=== PATIENT | female | born 1980 | race African-American/Black ===

== ENCOUNTER 2016-05-24 01:56 | Emergency (ER) | payer SELFPAY ==
[~2016-05-24] VITALS: Ht 160 cm; Wt 68.0 kg
[~2016-05-24 01:56] MED LIST: AUGM875T PO; SULF-154 PO; Z.0.NO CURRENT MEDS
[2016-05-24] MEDS ORDERED: AMOX500T PO (02:08)
[2016-05-24] MEDS ORDERED: HYDR-3533 PO (02:08)
[2016-05-24] MEDS ORDERED: ACETAMINOPHEN/HYDROcodone 325 MG/5 MG TAB PO ONE (02:15)
[2016-05-24] MEDS ORDERED: AMOXICILLIN (TRIHYDRATE) 500 MG CAP PO ONE (02:15)
--- NOTE | 2016-05-24 02:17 | PD ---
HPI Chief Complaint: ENT Complaint Time Seen by Provider: 02:15 Travel History International Travel<30 days: No Contact w/Intl Traveler<30days: No Traveled to known affect area: No History of Present Illness HPI 35-year-old black female presents to emergency Department with complaints of dental pain and ear pain. She states that she has been sick now for the last 2- 3 days. She states the pain is severe. She has taken [id number] medications without relief. No palliative activity. PFSH Past Medical History Narrative Medical Asthma Hx Anticoagulant Therapy: No Asthma: Yes ( CHILD) Cardiovascular Problems: No Chemotherapy: No Cerebrovascular Accident: No Diabetes: No Diminished Hearing: No Respiratory: Yes (ASTHMA) Tetanus Vaccination: < 5 Years : 0 Para: 0 Past Surgical History Surgical History: No Previous Surgery Hysterectomy: No Social History Alcohol Use: Yes Tobacco Use: Yes (1 PPD) Substance Use: No Allergies-Medications (Allergen,Severity, Reaction): Coded Allergies: No Known Allergies (Verified , 05/24/16) Reported Meds & Prescriptions Reported Meds & Active Scripts Active Amoxicillin 500 Mg Tab 1,000 Mg PO BID Lortab (Hydrocodone-Acetaminophen) 5-325 Mg Tab 1 Tab PO Q8HR PRN Septra Ds (Trimethoprim/Sulfamethoxazole) Tab 1 Tab PO BID [id number] M1 875 Mg Tab 1 Tab PO BID Reported No Current Meds (Miscellaneous Medication) Misc Review of Systems Except as stated in HPI: all other systems reviewed are Neg Physical Exam Narrative GENERAL: Well-developed, well-nourished in no acute distress. Nontoxic appearing. HEAD: Normocephalic, atraumatic. EYES: Pupils equal round and reactive. Extraocular motions intact. No scleral icterus. No injection or drainage. ENT: TMs clear without erythema. The external auditory canals clear. Nose: clear . Posterior pharynx is pink and moist. No tonsillar edema or exudate. Uvula midline. Airway patent. The patient has periodontal disease. She has multiple dental caries. NECK: Trachea midline.Supple, nontender, moves head freely. No central bony tenderness or spasm. CARDIOVASCULAR: Regular rate and rhythm without murmurs, gallops, or rubs. RESPIRATORY: Clear to auscultation. Breath sounds equal bilaterally. No wheezes , rales, or rhonchi. GASTROINTESTINAL: Abdomen soft, non-tender, nondistended. No hepato-splenomegaly , or palpable masses. No guarding. EXTREMITIES: No clubbing, cyanosis, or edema. No joint tenderness, effusion, or edema noted. BACK: Nontender without deformity or crepitance. No flank tenderness. Data Data Orders Amoxicillin (Trimox) (05/24/16 02:15) Acetamin-Hydrocod 325-5 Mg ([place] 5-325 (05/24/16 02:15) MDM Medical Decision Making Medical Screen Exam Complete: Yes Emergency Medical Condition: Yes Medical Record Reviewed: Yes Differential Diagnosis MDM: Moderate Differential diagnoses: Dental abscess, dental caries, osteitis, cellulitis Narrative Course Patient's given amoxicillin 500 mg by mouth, Lortab 5 mg by mouth. This is dental caries, dentalgia Diagnosis Primary Impression: Dentalgia Additional Impression: Dental caries Patient Instructions: General Instructions, Narcotic given in the ED Additional Instructions: Rest. Saltwater gargles. [place] oil on cotton balls. 3 Advil every 6 hours. Amoxicillin and Lortab. follow-up with a dentist as soon as possible. And return to the ER if any problems. Med/Other Pt SpecificInfo: Prescription(s) given Scripts Amoxicillin 500 Mg Tab1,000 Mg PO BID #40 TAB Prov:Leroy Olivas MD 05/24/16 Hydrocodone-Acetaminophen (Lortab)5-325 Mg Tab1 Tab PO Q8HR PRN (PAIN) #12 TAB Prov:Leroy Olivas MD 05/24/16 Disposition: 01 DISCHARGE HOME Condition: Stable Gary Ayoub May 24, 2016 02:17
== END 2016-05-24 02:27 | disposition home or self-care (01) ==
LOC: NEPB 01:56
DX: K02.9 Dental caries, unspecified (principal); K08.89 Other specified disorders of teeth and supporting structures
CPT/HCPCS: 99282

== ENCOUNTER 2016-08-11 06:05 | Emergency (ER) | payer SELFPAY ==
[~2016-08-11] VITALS: Ht 165.1 cm; Wt 68.0 kg
[~2016-08-11 06:05] MED LIST changes: +AMOX500T PO; +HYDR-3533 PO
[2016-08-11 06:07] VITALS: BP 106/69; PULSE 89; RESP 16; TEMP 99.1; O2SAT 98
[2016-08-11] MEDS ORDERED: VENTAER INH (06:22)
[2016-08-11] MEDS ORDERED: ONDANSETRON HCL 4 MG/2 ML VIAL IV PUSH ONE (06:30)
[2016-08-11] MEDS ORDERED: SODIUM CHLOR 0.9% 1000 ML INJ 1,000 ML IV ONE (06:30)
[2016-08-11] MEDS ORDERED: ZITHTAB PO (06:35)
[2016-08-11] MEDS ORDERED: ZOFR4TAB3 SL (06:35)
[2016-08-11] MEDS ORDERED: LOMO2.5T PO (06:35)
--- NOTE | 2016-08-11 06:35 | PD ---
HPI Chief Complaint: Cold / Flu Symptoms Time Seen by Provider: 06:17 Travel History International Travel<30 days: No Contact w/Intl Traveler<30days: No Traveled to known affect area: No History of Present Illness HPI 35 years old female complains of earache, sore throat, productive cough, nausea vomiting diarrhea. Patient states that the symptoms started 2 days ago. Patient states that the cough is persistent and nonproductive. Patient states that she has blood-tinged sputum occasionally. Patient states that she has some blood-tinged stool also. Patient denies any fever chills. Patient denies any chest pain or shortness of breath. Patient also complains of body ache. PFSH Past Medical History Hx Anticoagulant Therapy: No Asthma: Yes ( CHILD) Cardiovascular Problems: No Chemotherapy: No Cerebrovascular Accident: No Diabetes: No Diminished Hearing: No Respiratory: Yes (ASTHMA) : 0 Para: 0 Past Surgical History Hysterectomy: No Social History Alcohol Use: Yes Tobacco Use: Yes (1 PPD) Substance Use: No Allergies-Medications (Allergen,Severity, Reaction): Coded Allergies: No Known Allergies (Verified , 08/11/16) Reported Meds & Prescriptions Reported Meds & Active Scripts Active Zithromax Z-Guzman (Azithromycin) 250 Mg Dspk 250 Mg PO DIRECTED 500 MG (2 tabs) day 1, then 1 tab days 2-5. Lomotil (Diphenoxylate-Atropine) 2.5-0.025 Mg Tab 1 Tab PO Q6H PRN Zofran Odt (Ondansetron Odt) 4 Mg Tab 4 Mg SL Q6HR PRN Reported Ventolin Hfa 18 GM Inh (Albuterol Sulfate) 90 Mcg/Act Aer 2 Puff INH Q4-6H PRN Review of Systems General / Constitutional: No: Fever Eyes: No: Visual changes HENT: Positive: Sore Throat, Earache, No: Headaches Cardiovascular: No: Chest Pain or Discomfort Respiratory: Positive: Cough, Hemoptysis, No: Shortness of Breath Gastrointestinal: Positive: Nausea, Vomiting, Diarrhea, No: Abdominal Pain Genitourinary: No: Dysuria Musculoskeletal: No: Pain Skin: No Rash Neurologic: No: Weakness Psychiatric: No: Depression Endocrine: No: Polydipsia Hematologic/Lymphatic: No: Easy Bruising Physical Exam Narrative GENERAL: Well-nourished, well-developed patient. SKIN: Focused skin assessment warm/dry. HEAD: Normocephalic. EYES: No scleral icterus. No injection or drainage. TM: Clear. Throat: Erythematous with exudate. NECK: Supple, trachea midline. No JVD or lymphadenopathy. CARDIOVASCULAR: Regular rate and rhythm without murmurs, gallops, or rubs. RESPIRATORY: Breath sounds equal bilaterally. No accessory muscle use. GASTROINTESTINAL: Abdomen soft, non-tender, nondistended. MUSCULOSKELETAL: No cyanosis, or edema. BACK: Nontender without obvious deformity. No CVA tenderness. Neurologic exam normal. Data Data Last Documented VS Vital Signs Date Time Temp Pulse Resp B/P Pulse Ox O2 Delivery O2 Flow Rate FiO2 08/11/16 06:07 99.1 89 16 106/69 98 Orders Complete Blood Count With Diff (08/11/16 06:21) Comprehensive Metabolic Panel (08/11/16 06:21) Urinalysis - C+S If Indicated (08/11/16 06:21) Iv Access Insert/Monitor (08/11/16 06:21) Ecg Monitoring (08/11/16 06:21) Oximetry (08/11/16 06:21) Ed Urine Pregnancytest Poc (08/11/16 06:21) Sodium Chlor 0.9% 1000 Ml Inj (Ns 1000 M (08/11/16 06:30) Ondansetron Inj (Zofran Inj) (08/11/16 06:30) Chest, Single Ap (08/11/16 06:23) Group A Rapid Strep Screen (08/11/16 06:26) Influenzae A/B Antigen (08/11/16 06:26) Strep Culture (Group A) (08/11/16 06:30) Labs Laboratory Tests Test 08/11/16 08/11/16 06:25 06:30 White Blood Count 7.8 TH/MM3 Red Blood Count 4.46 MIL/MM3 Hemoglobin 13.0 GM/DL Hematocrit 37.3 % Mean Corpuscular Volume 83.6 FL Mean Corpuscular Hemoglobin 29.1 PG Mean Corpuscular Hemoglobin 34.8 % Concent Red Cell Distribution Width 15.1 % Platelet Count 269 TH/MM3 Mean Platelet Volume 8.2 FL Neutrophils (%) (Auto) 65.3 % Lymphocytes (%) (Auto) 18.3 % Monocytes (%) (Auto) 13.7 % Eosinophils (%) (Auto) 1.2 % Basophils (%) (Auto) 1.5 % Neutrophils # (Auto) 5.1 TH/MM3 Lymphocytes # (Auto) 1.4 TH/MM3 Monocytes # (Auto) 1.1 TH/MM3 Eosinophils # (Auto) 0.1 TH/MM3 Basophils # (Auto) 0.1 TH/MM3 CBC Comment DIFF FINAL Differential Comment Sodium Level 138 MEQ/L Potassium Level 3.9 MEQ/L Chloride Level 104 MEQ/L Carbon Dioxide Level 26.1 MEQ/L Anion Gap 8 MEQ/L Blood Urea Nitrogen 6 MG/DL Creatinine 0.81 MG/DL Estimat Glomerular Filtration 97 ML/MIN Rate Random Glucose 89 MG/DL Calcium Level 8.7 MG/DL Total Bilirubin 0.3 MG/DL Aspartate Amino Transf 10 U/L (AST/SGOT) Alanine Aminotransferase 20 U/L (ALT/SGPT) Alkaline Phosphatase 44 U/L Total Protein 7.9 GM/DL Albumin 3.4 GM/DL Urine Color YELLOW Urine Turbidity HAZY Urine pH 7.0 Urine Specific [place] 1.017 Urine Protein TRACE mg/dL Urine Glucose (UA) NEG mg/dL Urine Ketones NEG mg/dL Urine Occult Blood SMALL Urine Nitrite NEG Urine Bilirubin NEG Urine Urobilinogen 2.0 MG/DL Urine Leukocyte Esterase SMALL Urine RBC 3 /hpf Urine WBC 2 /hpf Urine Squamous Epithelial 15 /hpf Cells Urine Bacteria RARE /hpf Urine Mucus FEW /lpf Microscopic Urinalysis Comment CULT NOT INDICATED MDM Medical Decision Making Medical Screen Exam Complete: Yes Emergency Medical Condition: Yes Interpretation(s) 7:16 AM. Influenza AB antigen negative. Strep screen negative. CBC CMP within normal limit. UA is negative. Differential Diagnosis Differential diagnosis including viral syndrome, otitis media, bronchitis, bronchitis, pneumonia, gastroenteritis, dehydration, electrolyte imbalance. Narrative Course 35 years old female complains of earache sore throat coughing nausea vomiting diarrhea body ache. Normal saline solution 1 L IV bolus. Zofran 4 mg IV. Diagnosis Primary Impression: Pharyngitis Qualified Code: J02.9 - Pharyngitis, unspecified etiology Additional Impressions: Bronchitis Gastroenteritis Patient Instructions: General Instructions Additional Instructions: Take medications as directed. Tylenol for fever. Follow-up with personal physician. Return if persistent problem or worse. Med/Other Pt SpecificInfo: Prescription(s) given Scripts Azithromycin (Zithromax Z-Guzman)250 Mg [id number] Mg PO DIRECTED #1 DSPK Ref 0 500 MG (2 tabs) day 1, then 1 tab days 2-5. Prov:Juan Miguel Rodriguez MD 08/11/16 Diphenoxylate-Atropine (Lomotil)2.5-0.025 Mg Tab1 Tab PO Q6H PRN (DIARRHEA) #10 TAB Ref 0 Prov:Juan Miguel oRdriguez MD 08/11/16 Ondansetron Odt (Zofran Odt)4 Mg Tab4 Mg SL Q6HR PRN (Nausea/Vomiting) #10 TAB Prov:Juan Miguel Rodriguez MD 08/11/16 Disposition: 01 DISCHARGE HOME Condition: Stable Juan Miguel Rodriguez MD Aug 11, 2016 06:35
--- NOTE | 2016-08-11 06:48 | RADRPT ---
EXAM DATE/TIME: 08/11/2016 06:21 [facility] COMPARISON: No previous studies available for comparison. INDICATIONS : Cough up blood. MEDICAL HISTORY : None. SURGICAL HISTORY : None. ENCOUNTER: Initial ACUITY: 1 day PAIN SCORE: 0/10 LOCATION: Bilateral chest FINDINGS: A single view of the chest demonstrates the lungs to be symmetrically aerated without evidence of mas s, infiltrate or effusion. The cardiomediastinal contours are unremarkable. Osseous structures are intact. CONCLUSION: Normal examination. Aaron Arreola MD on August 11, 2016 at 6:47 Board Certified Radiologist. This report was verified electronically.
[2016-08-11 06:50] LABS: AUTOMATED NEUTROPHIL # 5.1 TH/MM3 (1.8-7.7); BASOPHIL # 0.1 TH/MM3 (0-0.2); BASOPHIL % 1.5 % (0.0-2.0); EOSINOPHIL # 0.1 TH/MM3 (0-0.4); EOSINOPHIL % 1.2 % (0.0-4.0); HEMATOCRIT 37.3 % (35.0-46.0); HEMO FLAGS DIFF FINAL; LYMPH % 18.3 % (9.0-44.0); LYMPHOCYTE # 1.4 TH/MM3 (1.0-4.8); MEAN CELL VOLUME 83.6 FL (80.0-100.0); MEAN CORPUSCULAR HEMOGLOBIN 29.1 PG (27.0-34.0); MEAN CORPUSCULAR HGB CONC 34.8 % (32.0-36.0); MONO % 13.7 % (0.0-8.0); NEUT % 65.3 % (16.0-70.0); PLATELET COUNT 269 TH/MM3 (150-450); RED BLOOD COUNT 4.46 MIL/MM3 (4.00-5.30); RED CELL DISTRIBUTION WIDTH 15.1 % (11.6-17.2); WHITE BLOOD COUNT 7.8 TH/MM3 (4.0-11.0)
[2016-08-11 06:57] LABS: BACTERIA, URINE RARE /hpf; BLOOD, URINE SMALL (NEG); COMMENT (UR) CULT NOT INDICATED; CULTURE IF INDICATED CULT NOT INDICATED; GLUCOSE,URINE NEG (NEG); KETONE, URINE NEG (NEG); MUCUS URINE FEW /lpf (OCC); NITRITE,URINE NEG (NEG); SQUAMOUS EPITHELIAL CELL URINE 15 /hpf (0-5); URINE COLOR YELLOW (YELLW/STRAW)
[2016-08-11 07:08] LABS: ANION GAP 8 MEQ/L (5-15); AST (GOT) 10 U/L (15-37); BICARBONATE 26.1 MEQ/L (21.0-32.0); BLOOD UREA NITROGEN 6 MG/DL (7-18); CHLORIDE 104 MEQ/L (98-107); GLOMERULAR FILTRATION RATE 97 ML/MIN (>89); POTASSIUM 3.9 MEQ/L (3.5-5.1); SODIUM (NA) 138 MEQ/L (136-145)
[2016-08-11 07:11] LABS: ALKALINE PHOSPHATASE 44 U/L (45-117); ALT (GPT) 20 U/L (10-53); TOTAL BILIRUBIN ADULT 0.3 MG/DL (0.2-1.0)
[2016-08-11 07:24] VITALS: BP 120/78; TEMP 97.8
== END 2016-08-11 07:24 | disposition home or self-care (01) ==
LOC: NEPE 06:05
DX: J02.9 Acute pharyngitis, unspecified (principal); J20.9 Acute bronchitis, unspecified; K52.9 Noninfective gastroenteritis and colitis, unspecified; F17.200 Nicotine dependence, unspecified, uncomplicated
CPT/HCPCS: 71010; 80053; 81001; 84703; 85025; 87081; 87804; 87880; 96361; 96374; 99284; J2405; J7030

== ENCOUNTER 2016-10-12 13:42 | Emergency (ER) | payer SELFPAY ==
[~2016-10-12] VITALS: Ht 160 cm; Wt 70.0 kg
[~2016-10-12 13:42] MED LIST changes: -AMOX500T PO; -AUGM875T PO; -HYDR-3533 PO; +LOMO2.5T PO; -SULF-154 PO; +VENTAER INH; -Z.0.NO CURRENT MEDS; +ZITHTAB PO; +ZOFR4TAB3 SL
[2016-10-12 13:43] VITALS: BP 132/76; PULSE 74; RESP 14; TEMP 99.4; O2SAT 97
[2016-10-12] MEDS ORDERED: SODIUM CHLOR 0.9% 1000 ML INJ 1,000 ML IV ONE (15:45)
[2016-10-12] MEDS ORDERED: diphenhydrAMINE HCL 50 MG/ML VIAL IV PUSH ONE (15:45)
[2016-10-12] MEDS ORDERED: PROCHLORPERAZINE INJ 10 MG/2 ML VIAL IV PUSH ONE (15:45)
--- NOTE | 2016-10-12 15:47 | PD ---
HPI Chief Complaint: Headache Time Seen by Provider: 15:37 Travel History International Travel<30 days: No Contact w/Intl Traveler<30days: No Traveled to known affect area: No History of Present Illness HPI This is a 35-year-old female who presents to the emergency department having woken up from sleep last evening with a headache that came on abruptly, going to the back of her head radiating down her back and her neck, constant, associated with some nausea and photophobia. She says she has felt feverish. She denies any sore throat, rhinorrhea or cough. She is not really prone to headaches and she's never had headache like this before. PFSH Past Medical History Hx Anticoagulant Therapy: No Asthma: Yes Cardiovascular Problems: No Chemotherapy: No Cerebrovascular Accident: No Diabetes: No Diminished Hearing: No Respiratory: Yes (asthma) Tetanus Vaccination: < 5 Years Influenza Vaccination: No ?: Unknown : 0 Para: 0 Past Surgical History Hysterectomy: No Social History Alcohol Use: No Tobacco Use: Yes Substance Use: No Allergies-Medications (Allergen,Severity, Reaction): Coded Allergies: No Known Allergies (Verified , 08/11/16) Reported Meds & Prescriptions Reported Meds & Active Scripts Active Zithromax Z-Guzman (Azithromycin) 250 Mg Dspk 250 Mg PO DIRECTED 500 MG (2 tabs) day 1, then 1 tab days 2-5. Lomotil (Diphenoxylate-Atropine) 2.5-0.025 Mg Tab 1 Tab PO Q6H PRN Zofran Odt (Ondansetron Odt) 4 Mg Tab 4 Mg SL Q6HR PRN Reported Ventolin Hfa 18 GM Inh (Albuterol Sulfate) 90 Mcg/Act Aer 2 Puff INH Q4-6H PRN Review of Systems Except as stated in HPI: all other systems reviewed are Neg Physical Exam Narrative GENERAL:Well appearing, no acute distress SKIN: Focused skin assessment warm and dry. HEAD: Atraumatic. Normocephalic. EYES: Pupils equal and round. No injection or drainage. ENT: Moist mucous membranes. Exudate on the right tonsil with some posterior pharyngeal erythema NECK: Trachea midline. Some tender anterior cervical lymphadenopathy on the right. CARDIOVASCULAR: Regular rate and rhythm. No murmur appreciated. RESPIRATORY: Clear to auscultation. Breath sounds equal bilaterally. GASTROINTESTINAL: Abdomen soft, non-tender, nondistended. MUSCULOSKELETAL: No obvious deformities. NEUROLOGICAL: Awake and alert. No obvious cranial nerve deficits. Moving all extremities. He PSYCHIATRIC: Appropriate mood and affect; insight and judgment normal. Data Data Last Documented VS Vital Signs Date Time Temp Pulse Resp B/P Pulse Ox O2 Delivery O2 Flow Rate FiO2 10/12/16 15:20 99 Room Air 10/12/16 13:43 99.4 74 14 132/[address] Brain W/O Iv Contrast(Rout) (10/12/16 ) Complete Blood Count With Diff (10/12/16 15:44) Comprehensive Metabolic Panel (10/12/16 15:44) Prothrombin Time / Inr (Pt) (10/12/16 15:44) Act Partial Throm Time (Ptt) (10/12/16 15:44) ^ Insert Iv (10/12/16 15:44) Group A Rapid Strep Screen (10/12/16 15:44) Prochlorperazine Inj (Compazine Inj) (10/12/16 15:45) Diphenhydramine Inj (Benadryl Inj) (10/12/16 15:45) Sodium Chlor 0.9% 1000 Ml Inj (Ns 1000 M (10/12/16 15:45) Strep Culture (Group A) (10/12/16 16:00) Monoscreen (10/12/16 16:29) Labs Laboratory Tests Test 10/12/16 16:00 White Blood Count 6.8 TH/MM3 Red Blood Count 4.37 MIL/MM3 Hemoglobin 12.6 GM/DL Hematocrit 36.7 % Mean Corpuscular Volume 83.9 FL Mean Corpuscular Hemoglobin 28.8 PG Mean Corpuscular Hemoglobin 34.3 % Concent Red Cell Distribution Width 15.2 % Platelet Count 286 TH/MM3 Mean Platelet Volume 7.9 FL Neutrophils (%) (Auto) 57.8 % Lymphocytes (%) (Auto) 22.2 % Monocytes (%) (Auto) 18.9 % Eosinophils (%) (Auto) 0.6 % Basophils (%) (Auto) 0.5 % Neutrophils # (Auto) 3.9 TH/MM3 Lymphocytes # (Auto) 1.5 TH/MM3 Monocytes # (Auto) 1.3 TH/MM3 Eosinophils # (Auto) 0.0 TH/MM3 Basophils # (Auto) 0.0 TH/MM3 CBC Comment DIFF FINAL Differential Comment Prothrombin Time 11.3 SEC Prothromb Time International 1.0 RATIO Ratio Activated Partial 25.9 SEC Thromboplast Time Sodium Level 139 MEQ/L Potassium Level 3.6 MEQ/L Chloride Level 107 MEQ/L Carbon Dioxide Level 23.5 MEQ/L Anion Gap 9 MEQ/L Blood Urea Nitrogen 10 MG/DL Creatinine 0.64 MG/DL Estimat Glomerular Filtration 127 ML/MIN Rate Random Glucose 84 MG/DL Calcium Level 9.0 MG/DL Total Bilirubin 0.7 MG/DL Aspartate Amino Transf 12 U/L (AST/SGOT) Alanine Aminotransferase 21 U/L (ALT/SGPT) Alkaline Phosphatase 38 U/L Total Protein 7.6 GM/DL Albumin 3.6 GM/DL [facility] Medical Decision Making Medical Screen Exam Complete: Yes Emergency Medical Condition: Yes Interpretation(s) temperature 99.4, no tachycardic, normotensive no leukocytosis 18% monocytes electrolytes within normal limits Differential Diagnosis Migraine headache, sinusitis, viral meningitis, HSV encephalitis, subarachnoid hemorrhage Narrative Course This is a 35-year-old female who presents to the emergency department with headache that started last evening associated with some fevers and chills. She has a temperature of 99.4 here in the emergency department. She does have some pus on the right tonsil and some tender lymphadenopathy in her neck. Labs were obtained which demonstrate 18% monocytes. CT of the head was obtained which is pending. She feels a lot better after Compazine, Benadryl and IV fluids. I had a long conversation with the patient. In my heart I think this is likely a viral syndrome given the patient's monocytic predominance however I don't think I can definitively exclude a viral meningitis, ages see encephalitis or subarachnoid hemorrhage without a lumbar puncture. Patient understands the risks but really doesn't want to have a lumbar puncture and she feels much better after conservative treatment. She wants to come back if she feels worse which I think is reasonable. CT imaging will be followed up by Dr. Reno. If the patient feels better after some Toradol she can be discharged home. Rafaela Mason MD Oct 12, 2016 15:47
[2016-10-12 16:11] LABS: AUTOMATED NEUTROPHIL # 3.9 TH/MM3 (1.8-7.7); BASOPHIL % 0.5 % (0.0-2.0); EOSINOPHIL % 0.6 % (0.0-4.0); HEMATOCRIT 36.7 % (35.0-46.0); HEMO FLAGS DIFF FINAL; LYMPH % 22.2 % (9.0-44.0); LYMPHOCYTE # 1.5 TH/MM3 (1.0-4.8); MEAN CELL VOLUME 83.9 FL (80.0-100.0); MEAN CORPUSCULAR HEMOGLOBIN 28.8 PG (27.0-34.0); MEAN CORPUSCULAR HGB CONC 34.3 % (32.0-36.0); MONO % 18.9 % (0.0-8.0); NEUT % 57.8 % (16.0-70.0); PLATELET COUNT 286 TH/MM3 (150-450); RED BLOOD COUNT 4.37 MIL/MM3 (4.00-5.30); RED CELL DISTRIBUTION WIDTH 15.2 % (11.6-17.2); WHITE BLOOD COUNT 6.8 TH/MM3 (4.0-11.0)
[2016-10-12 16:19] LABS: APTT (PATIENT) 25.9 SEC (24.3-30.1); PROTHROMBIN TIME - PATIENT 11.3 SEC (9.8-11.6)
[2016-10-12 16:34] LABS: ALT (GPT) 21 U/L (10-53); ANION GAP 9 MEQ/L (5-15); AST (GOT) 12 U/L (15-37); BICARBONATE 23.5 MEQ/L (21.0-32.0); BLOOD UREA NITROGEN 10 MG/DL (7-18); CHLORIDE 107 MEQ/L (98-107); GLOMERULAR FILTRATION RATE 127 ML/MIN (>89); POTASSIUM 3.6 MEQ/L (3.5-5.1); SODIUM (NA) 139 MEQ/L (136-145)
[2016-10-12 16:37] LABS: ALKALINE PHOSPHATASE 38 U/L (45-117); TOTAL BILIRUBIN ADULT 0.7 MG/DL (0.2-1.0)
--- NOTE | 2016-10-12 17:21 | RADRPT ---
EXAM DATE/TIME: 10/12/2016 17:03 [facility] COMPARISON: No previous studies available for comparison. INDICATIONS : Cephalgia for one day. RADIATION DOSE: 50.14 CTDIvol (mGy) MEDICAL HISTORY : None SURGICAL HISTORY : None. ENCOUNTER: Initial ACUITY: 1 day PAIN SCALE: 8/10 LOCATION: Bilateral head TECHNIQUE: Multiple contiguous axial images were obtained of the head. Using automated exposure control and adj ustment of the mA and/or kV according to patient size, radiation dose was kept as low as reasonably a chievable to obtain optimal diagnostic quality images. FINDINGS: CEREBRUM: The ventricles are normal for age. No evidence of midline shift, mass lesion, hemorrhage or acute in farction. No extra-axial fluid collections are seen. POSTERIOR FOSSA: The cerebellum and brainstem are intact. The 4th ventricle is midline. The cerebellopontine angle i s unremarkable. EXTRACRANIAL: The visualized portion of the orbits is intact. SKULL: The calvaria is intact. No evidence of skull fracture. CONCLUSION: 1. No acute intracranial abnormality is identified. Leroy Melo MD on October 12, 2016 at 17:17 Board Certified Radiologist. This report was verified electronically.
[2016-10-12] MEDS ORDERED: KETOROLAC TROMETHAMINE 30 MG/ML (IVP) VIAL IV PUSH ONE (18:00)
--- NOTE | 2016-10-12 18:38 | PD ---
Physical Exam Narrative Patient signed out to me by Dr. Mason to follow up testing and reassess the patient. Please see her documentation for complete details. Briefly, patient has had a headache and body aches. She was given Compazine and Benadryl by Dr. Mason with improvement of her headache. Exam shows no neurologic abnormalities. Data Data Last Documented VS Vital Signs Date Time Temp Pulse Resp B/P Pulse Ox O2 Delivery O2 Flow Rate FiO2 10/12/16 15:20 99 Room Air 10/12/16 13:43 99.4 74 14 132/[address] Brain W/O Iv Contrast(Rout) (10/12/16 ) Complete Blood Count With Diff (10/12/16 15:44) Comprehensive Metabolic Panel (10/12/16 15:44) Prothrombin Time / Inr (Pt) (10/12/16 15:44) Act Partial Throm Time (Ptt) (10/12/16 15:44) ^ Insert Iv (10/12/16 15:44) Group A Rapid Strep Screen (10/12/16 15:44) Prochlorperazine Inj (Compazine Inj) (10/12/16 15:45) Diphenhydramine Inj (Benadryl Inj) (10/12/16 15:45) Sodium Chlor 0.9% 1000 Ml Inj (Ns 1000 M (10/12/16 15:45) Strep Culture (Group A) (10/12/16 16:00) Monoscreen (10/12/16 16:29) Ed Urine Pregnancytest Poc (10/12/16 17:26) Ketorolac Inj (Toradol Inj) (10/12/16 18:00) Labs Laboratory Tests Test 10/12/16 10/12/16 16:00 16:35 White Blood Count 6.8 TH/MM3 Red Blood Count 4.37 MIL/MM3 Hemoglobin 12.6 GM/DL Hematocrit 36.7 % Mean Corpuscular Volume 83.9 FL Mean Corpuscular Hemoglobin 28.8 PG Mean Corpuscular Hemoglobin 34.3 % Concent Red Cell Distribution Width 15.2 % Platelet Count 286 TH/MM3 Mean Platelet Volume 7.9 FL Neutrophils (%) (Auto) 57.8 % Lymphocytes (%) (Auto) 22.2 % Monocytes (%) (Auto) 18.9 % Eosinophils (%) (Auto) 0.6 % Basophils (%) (Auto) 0.5 % Neutrophils # (Auto) 3.9 TH/MM3 Lymphocytes # (Auto) 1.5 TH/MM3 Monocytes # (Auto) 1.3 TH/MM3 Eosinophils # (Auto) 0.0 TH/MM3 Basophils # (Auto) 0.0 TH/MM3 CBC Comment DIFF FINAL Differential Comment Prothrombin Time 11.3 SEC Prothromb Time International 1.0 RATIO Ratio Activated Partial 25.9 SEC Thromboplast Time Sodium Level 139 MEQ/L Potassium Level 3.6 MEQ/L Chloride Level 107 MEQ/L Carbon Dioxide Level 23.5 MEQ/L Anion Gap 9 MEQ/L Blood Urea Nitrogen 10 MG/DL Creatinine 0.64 MG/DL Estimat Glomerular Filtration 127 ML/MIN Rate Random Glucose 84 MG/DL Calcium Level 9.0 MG/DL Total Bilirubin 0.7 MG/DL Aspartate Amino Transf 12 U/L (AST/SGOT) Alanine Aminotransferase 21 U/L (ALT/SGPT) Alkaline Phosphatase 38 U/L Total Protein 7.6 GM/DL Albumin 3.6 GM/DL Monoscreen NEG MDM Supervised Visit with DIMA: No Narrative Course Patient given Toradol for muscle pain. She reports feeling better and would like to go home. Dr. Mason discussed with her the possibility of LP. However, she does not want this procedure at this time. I discussed it with her at all, and she still declines. She understands this is the only way to completely rule out meningitis or encephalitis. she says she is feeling better, but will return if her symptoms worsen. She is advised to drink plenty of fluids and take Tylenol or Ibuprofen as needed for pain. Diagnosis Primary Impression: Headache Qualified Code: R51 - Acute nonintractable headache, unspecified headache type Patient Instructions: Acute Headache (ED), General Instructions Additional Instruction: Drink plenty of fluids. Take Tylenol or Ibuprofen as needed for pain. Follow up with a primary care doctor. Return to the ED as needed for any worsening symptoms. Disposition: 01 DISCHARGE HOME Condition: Stable Kkee Reno MD Oct 12, 2016 18:38
[2016-10-12 18:48] VITALS: BP 128/71
== END 2016-10-12 18:56 | disposition home or self-care (01) ==
LOC: NEPD 13:42
DX: R51 Headache (principal); M79.1 Myalgia
CPT/HCPCS: 70450; 80053; 84703; 85025; 85610; 85730; 86308; 87081; 87880; 96361; 96374; 96375; 99285; J0780; J1200; J1885; J7030

== ENCOUNTER 2018-04-30 08:04 | Inpatient (IN) ==
[2018-04-30] MEDS ORDERED: Sod Chloride 0.9% Inj 1,000 ML IV.SIG ONE ×2 (09:14→11:32)
[2018-04-30] MEDS ORDERED: Morphine Inj 4 MG/ML Vial IV.PUSH ONE (09:14)
--- NOTE | 2018-04-30 09:27 | ED ---
HPI General Chief complaint: Abdominal Pain Stated complaint: Body Pain Complaint Time Seen by Provider: 04/30/18 09:08 Source: patient and RN notes reviewed Mode of arrival: ambulatory History of Present Illness HPI narrative: 37yF presenting with abdominal pain. The patient states that she' s had 4 days of epigastric and lower abdominal "stabbing" pain which is constant , non-radiating, worse with movement and not made better by anything, severe, associated with nausea and multiple episodes of vomiting. She also states that she has not had a BM for 5 days. Denies fevers or chills, chest pain, cough, dysuria, or diarrhea. Family history non-contributory. Related Data Home Medications Medication Instructions Recorded Confirmed albuterol sulfate [ProAir HFA] 1 puff INHALATION Q4-6H PRN 03/07/18 04/30/18 Allergies Allergy/AdvReac Type Severity Reaction Status Date / Time No Known Allergies Allergy Verified 04/30/18 09:09 Review of Systems ROS: all other systems reviewed are negative Constitutional Denies fever(s) Cardiovascular Denies chest pain Respiratory Denies cough Gastrointestinal Reports abdominal pain, Reports nausea and Reports vomiting Genitourinary Denies dysuria Musculoskeletal Denies back pain Neurologic Denies confusion Psychiatric Denies confusion [facility] Medical History Medical History Asthma (Acute) Surgical History Surgical History No history of previous surgery (Acute) Social History Social History Substance History: No History of Abuse Second Hand Smoke Exposure: Yes Smoking Status: Current every day smoker Tobacco Type: Cigarettes How Often Do You Have a Drink Containing Alcohol: Never Recent Out of Country Travel within the Last 8 Weeks: No Immunization History Tetanus Immunization: <5 Years Exam Const General: healthy appearing and no acute distress HENMT Face and sinus: normal facial exam Eyes General: appearance normal, both eyes and all related structures Resp Effort & Inspection: normal respiratory effort Auscultation: no rhonchi and no wheezes Cardio Rate: regular rate Rhythm: regular rhythm GI Other: Soft, non-distended, moderate diffuse tenderness worst in RLQ/ McBurney' s point, no guarding or rebound Skin General: no rashes or lesions noted Neuro General: alert and awake Psych Affect: normal affect Course Initial Documented Vital Signs Temperature 98.3 F 04/30/18 08:17 Pulse Rate 101 H 04/30/18 08:17 Respiratory Rate 19 04/30/18 08:17 Blood Pressure 118/57 L 04/30/18 08:17 Pulse Oximetry 98 04/30/18 08:17 Last Documented Vital Signs Temperature 98.3 F 04/30/18 08:17 Pulse Rate 101 H 04/30/18 08:17 Respiratory Rate 18 04/30/18 13:00 Blood Pressure 118/57 L 04/30/18 08:17 Pulse Oximetry 98 04/30/18 08:17 Medical Decision Making MDM Narrative Medical decision making narrative: Assessment: 37yF presenting with abdominal pain Plan: Pain control, antiemetics, IV fluids Labs UA, UCG CT abd/ pelvis Addendum: Patient found to have leukocytosis, UTI, and acute appendicitis with possible rupture. The patient has been NPO since last night. Case discussed with Dr. Thomas of general surgery, who will come see the patient and requests medical admission. I also spoke with Dr. De León of [facility]. I informed the patient of these results and plan for likely surgical intervention. She understands and agrees with plan. Antibiotics given. Medical Screen Exam Complete: Yes Emergency Medical Condition: Yes Differential Diagnosis Differential Diagnosis: Differential diagnosis includes, but is not limited to: appendicitis, SBO, colitis, pancreatitis, gastritis, cholelithiasis, UTI/ pyelonephritis, Lab Data Result diagrams: 04/30/18 09:30 04/30/18 09:30 POC Results POC Urine Results Negative Lab Results 04/30/18 04/30/18 04/30/18 Range/Units 09:30 09:30 09:30 WBC 11.8 H (4.0-11.0) th/mm3 RBC 4.38 (4.00-5.30) mil/mm3 Hgb 12.2 (11.6-15.3) gm/dL Hct 36.2 (35.0-46.0) % MCV 82.6 (80.0-100.0) fL MCH 27.9 (27.0-34.0) pg MCHC 33.7 (32.0-36.0) % RDW 15.5 (11.6-17.2) % Plt Count 355 (150-450) th/mm3 MPV 8.0 (7.0-11.0) fL Neut % (Auto) 73.8 H (16.0-70.0) % Lymph % (Auto) 9.6 (9.0-44.0) % Parmer % (Auto) 16.3 H (0.0-8.0) % Eos % (Auto) 0.2 (0.0-4.0) % Baso % (Auto) 0.1 (0.0-2.0) % Neut # (Auto) 8.7 H (1.8-7.7) th/mm3 Lymph # (Auto) 1.1 (1.0-4.8) th/mm3 Parmer # (Auto) 1.9 H (0.0-0.9) th/mm3 Eos # (Auto) 0.0 (0.0-0.4) th/mm3 Baso # (Auto) 0.0 (0.0-0.2) th/mm3 WBC Differential . Differential Comment Auto diff final Sodium 135 L (136-145) meq/L Potassium 3.4 L (3.5-5.1) meq/L Chloride 101 (98-107) meq/L Carbon Dioxide 28.0 (21.0-32.0) meq/L Anion Gap 6 (5-15) meq/L BUN 4 L (7-18) mg/dL Creatinine 0.80 (0.50-1.00) mg/dL Estimated GFR Greater than 89 (>89) mL/min Random Glucose 93 (74-106) mg/dL Calcium 8.7 (8.5-10.1) mg/dL Magnesium 2.1 (1.5-2.5) mg/dL Total Bilirubin 0.9 (0.2-1.0) mg/dL AST 7 L (15-37) U/L ALT 12 (10-53) U/L Alkaline Phosphatase 55 (45-117) U/L Total Protein 7.8 (6.4-8.2) g/dL Albumin 2.9 L (3.4-5.0) g/dL Lipase 43 L (73-393) U/L Urine Color Yellow (Yellw/Straw) Urine Clarity Hazy H (Clear) Urine pH 6.0 (5.0-8.5) Ur Specific [place] 1.008 (1.002-1.035) Urine Protein Negative (Neg-Trace) mg/dL Urine Glucose (UA) Negative (Negative) mg/dL Urine Ketones Negative (Negative) mg/dL Urine Occult Blood Small H (Negative) Urine Nitrate Negative (Negative) Urine Bilirubin Negative (Negative) Urine Urobilinogen 4 or greater (Less than 2) mg/dL Ur Leukocyte Esterase Trace H (Negative) Urine RBC 3 (0-3) /hpf Urine WBC 12 H (0-5) /hpf Ur Squamous Epith Cells 8 (0-5) /hpf Urine Bacteria Rare H (None) /hpf Urine Mucus Few H (Occasional) /lpf Micro UA Comment Culture indicated Ur Microscopic Review Not Reportable Urine Culture Comments Culture indicated Imaging Data Radiologist's impression: Abdomen/Pelvis CT 04/30/18 09:14 CONCLUSION: Abnormal exam demonstrating mixed density masslike area right lower quadrant adjacent to cecum with slightly prominent lymph nodes at this site. Possibility of a ruptured appendix and periappendiceal abscess is the primary consideration is a normal appendix is not visualized. Additionally there are large cysts in the left ovary with slight fluid in the right adnexa and a normal right ovary is not visualized. Discharge Plan Discharge Disposition Patient Disposition: ED Admit(ED Internal Use Only) Discharge Condition Condition: Stable Discharge Order Discharge Orders: ED Use Only Admit Order (Routine); Ordered 04/30/18 Ordered By: Denice Sena Discharge Details Diagnosis: Acute appendicitis, Acute UTI Physicians Team ED Provider: Denice Sena Primary Care Provider: Primary Care Physici,No Other Providers: Narciso Thomas Rxs /Orders / Referrals /Forms Prescriptions: No Action albuterol sulfate [ProAir HFA] 90 mcg/actuation Hfa Aerosol Inhaler 1 puff INHALATION Q4-6H PRN (Reason: Respiratory Distress) RF: 0 Status ED Status: Admitted Patient
[2018-04-30 10:03] LABS: Baso % (Auto) 0.1 % (0.0-2.0); Eos % (Auto) 0.2 % (0.0-4.0); Hematocrit 36.2 % (35.0-46.0); Hemoglobin 12.2 gm/dL (11.6-15.3); Lymph # (Auto) 1.1 th/mm3 (1.0-4.8); Lymph % (Auto) 9.6 % (9.0-44.0); Mean Corpuscular HGB Conc 33.7 % (32.0-36.0); Mean Corpuscular Hemoglobin 27.9 pg (27.0-34.0); Mean Corpuscular Volume 82.6 fL (80.0-100.0); Mono # (Auto) 1.9 th/mm3 (0.0-0.9); Mono % (Auto) 16.3 % (0.0-8.0); Neut # (Auto) 8.7 th/mm3 (1.8-7.7); Neut % (Auto) 73.8 % (16.0-70.0); Platelet Count 355 th/mm3 (150-450); Red Blood Count 4.38 mil/mm3 (4.00-5.30); Red Cell Distribution Width 15.5 % (11.6-17.2); White Blood Count 11.8 th/mm3 (4.0-11.0)
[2018-04-30 10:16] LABS: Bacteria,Urine Rare /hpf; Bilirubin,Urine Negative (Negative); Clarity,Urine Hazy (Clear); Color,Urine Yellow (Yellw/Straw); Glucose,Urine (UA) Negative (Negative); Leukocyte Esterase,Urine Trace (Negative); Mucus,Urine Few /lpf (Occasional); Nitrite,Urine Negative (Negative); Specific Gravity,Urine 1.008 (1.002-1.035); Squamous Epithelial Cell,Urine 8 /hpf (0-5); Urobilinogen,Urine 4 or Greater mg/dL (Less than 2)
[2018-04-30 10:18] LABS: Alanine Aminotransferase 12 U/L (10-53); Albumin 2.9 g/dL (3.4-5.0); Anion Gap 6 meq/L (5-15); Aspartate Aminotransferase 7 U/L (15-37); Blood Urea Nitrogen 4 mg/dL (7-18); Calcium 8.7 mg/dL (8.5-10.1); Chloride 101 meq/L (98-107); Glomerular Filtration Rate Greater Than 89 mL/min (>89); Glucose,Random 93 mg/dL (74-106); Lipase 43 U/L (73-393); Magnesium 2.1 mg/dL (1.5-2.5); Potassium 3.4 meq/L (3.5-5.1); Sodium 135 meq/L (136-145)
[2018-04-30 10:20] LABS: Alkaline Phosphatase 55 U/L (45-117); Total Protein 7.8 g/dL (6.4-8.2)
--- NOTE | 2018-04-30 11:27 | CT ---
EXAM DATE: 04/30/2018 11:17 AM EST AGE/SEX: 37 years / Female INDICATIONS: Right lower abdomen pain. CLINICAL DATA: This is the patient's initial encounter. Patient reports that signs and symptoms have been present for 1 day and indicates a pain score of 8/10. MEDICAL/SURGICAL HISTORY: Asthma. None. ORAL CONTRAST: No oral contrast ingested. RADIATION DOSE: 6.57 CTDI (mGy) COMPARISON: No prior exams available for comparison. TECHNIQUE: Multiple contiguous axial images were obtained through the abdomen and pelvis following b olus infusion of 94 ml Omnipaque 350 (iohexol) nonionic water-soluble contrast as a single exam dos e. No oral contrast ingested. Using automated exposure control and adjustment of the mA and/or kV ac cording to patient size, radiation dose was kept as low as reasonably achievable to obtain optimal di agnostic quality images. DICOM format image data is available electronically for review and comparis on. FINDINGS: Abdomen CT: The liver, spleen, pancreas, adrenals are unremarkable. There are tiny simple cysts in both kidneys. There is no evidence for any appreciable pathological adenopathy, free fluid, or bowel obstruction. Pelvic CT: There is abnormal mixed density masslike area in right lower quadrant extending from the l evel of the medial cecum into the superior margins of the bladder measures almost 5.6 cm in transvers e diameter and extends for approximately 7.7 cm in clinical dimension. It causes mass effect on the a djacent loops of bowel. A normal appendix is not visualized. There also appears to be some gas bubble s adjacent to loops of bowel at this site probably within bowel itself, however some of them may be o utside of the bowel representing slight contained perforation. There are cysts in the left ovary the largest one measures 5.6 cm in size projecting in between the uterus and the patient's rectum. There is also slight fluid in the pelvis and right adnexa. A normal right ovary is not visualized. Slight f luid is present within the endometrial canal as well. There are a few lymph nodes slightly prominent in this location right lower quadrant and the largest one measures 1.3 cm in size. CONCLUSION: Abnormal exam demonstrating mixed density masslike area right lower quadrant adjacent to cecum with slightly prominent lymph nodes at this site. Possibility of a ruptured appendix and periap pendiceal abscess is the primary consideration is a normal appendix is not visualized. Additionally t here are large cysts in the left ovary with slight fluid in the right adnexa and a normal right ovary is not visualized. Electronically signed by: Connie Gale MD Board Certified Radiologist 04/30/2018 11:25 AM EST
[2018-04-30] MEDS ORDERED: Levofloxacin 500 mg Premix Inj 500 MG/100 ML PIGGYBACK IV.SIG ONE (11:29)
[2018-04-30] MEDS ORDERED: Morphine Sulfate Inj 8 MG/ML Vial IV.PUSH ONE (11:32)
[2018-04-30] MEDS ORDERED: Sod Chloride 0.9% Inj 1,000 ML IV.CONT SCH (12:45)
[2018-04-30] MEDS ORDERED: Acetaminophen 325 MG Tablet PO PRN (14:58)
[2018-04-30] MEDS ORDERED: Naloxone Inj 0.4 MG/ML Vial IV.PUSH PRN (15:04)
[2018-04-30] MEDS: Morphine Inj 4 MG/ML Vial IV.PUSH PRN ×3 (15:16→21:01)
--- NOTE | 2018-04-30 15:58 | P.HPIM ---
History of Present Illness Primary Care Physician: No Primary Care Physician Chief Complaint: Abdominal pain with nausea vomiting History of Present Illness: 37-year-old white female with a history of asthma presents emergency room with 4-day history of epigastric sharp stabbing pain with generalized bandlike radiation associated with intractable nausea, nonbilious vomiting with chills and fevers. She also reports a 4-day history of constipation which is unusual for her. She denies any unusual food intake during the past week. She denies any associated chest pains nor any shortness of breath. She reports a 2-day history of dysuria with no urinary urgency or frequency. She denies any unusual vaginal discharge. Diagnosis (1) Acute appendicitis: Inpatient Certification Inpatient Certification: I certify that the inpatient services were ordered in accordance with Medicare regulations governing the order. This includes certification that hospital inpatient services are reasonable and necessary and in the case of services not specified as inpatient-only under 42 CFR 419.22(n), that they are appropriately provided as inpatient services in accordance to with the 2-midnight benchmark under 43 CFR 412.3(e) Estimated Total Length of Stay (Days): 2 Plans for Post Hospital Care: Home Review of Systems Constitutional: Reports as per HPI, Reports chills, Reports fever(s), Denies headache(s) and Reports poor appetite Eyes: Denies blurry vision, Denies change in vision and Denies eye pain Ears, Nose, Mouth, and Throat: Denies abnormal hearing, Denies headache(s), Denies mouth pain, Denies nasal congestion, Denies neck pain and Denies sore throat Cardiovascular: Denies chest pain, Denies pedal edema, Denies palpitations and Denies dyspnea Respiratory: Denies cough and Denies dyspnea Gastrointestinal: Reports as per HPI, Reports abdominal pain, Reports constipation, Denies loose stools, Reports nausea and Reports vomiting Genitourinary: Reports dysuria, Denies urinary hesitancy, Denies urinary urgency and Denies vaginal discharge Musculoskeletal: Denies back pain, Denies myalgias, Denies arthralgias, Denies neck pain and Denies numbness Skin/Breast: Denies new lesions and Denies rash Neurologic: Denies abnormal hearing, Denies headache(s), Denies focal weakness, Denies memory loss and Denies numbness Psychiatric: Denies anxiety, Denies depression and Denies memory loss Endocrine: Denies cold intolerance, Denies heat intolerance and Denies palpitations Hematologic/Lymphatic: Denies easy bleeding and Denies easy bruising [facility] Medical History Medical History Asthma (Chronic) Surgical History Surgical History No history of previous surgery (Chronic) Social History Social History Substance History: No History of Abuse Second Hand Smoke Exposure: Yes Smoking Status: Current every day smoker Tobacco Type: Cigarettes Packs Per Day: 1 Cigarettes Per Day: 20.0 How Often Do You Have a Drink Containing Alcohol: Never Recent Out of Country Travel within the Last 8 Weeks: No Immunization History Tetanus Immunization: <5 Years Medications and Allergies Allergies Allergy/AdvReac Type Severity Reaction Status Date / Time No Known Allergies Allergy Verified 04/30/18 09:09 Home Medications Medication Instructions Recorded Confirmed Type albuterol sulfate [ProAir HFA] 1 puff INHALATION Q4-6H PRN 03/07/18 04/30/18 History Active Medications: Active Medications Acetaminophen (Tylenol) 650 mg PO Q4H PRN PRN Reason: Temp > 100.4 Acetaminophen (Tylenol) 650 mg PO Q6HR PRN PRN Reason: PAIN SCALE 1 TO 2 Albuterol (Ventolin Hfa Inh) 1 puff INH Q4H PRN PRN Reason: Respiratory Distress Sodium Chloride (Ns Inj) 1,000 mls @ 84 mls/hr IV.CONT .[id number] [facility] [place] Last Admin: 04/30/18 13:00 Dose: 84 mls/hr Metronidazole/Sodium Chloride (Flagyl 500 Mg Inj) 100 mls @ 100 mls/hr IV.SIG Q8H [facility] [place] Potassium Chloride/Sodium Chloride (Ns + Kcl 20 Meq Inj) 1,000 mls @ 100 mls/ hr IV.CONT .Q10H [facility] [place] Last Admin: 04/30/18 15:12 Dose: 100 mls/hr Levofloxacin (Levaquin) 750 mg PO DAILY [facility] [place] Morphine Sulfate (Morphine Inj) 2 mg IV.PUSH Q3H PRN PRN Reason: PAIN 3-5; IF UNABLE TO TAKE PO Last Admin: 04/30/18 15:16 Dose: 2 mg Morphine Sulfate (Morphine Inj) 4 mg IV.PUSH Q3H PRN PRN Reason: PAIN 6-10;IF UNABLE TO TAKE PO Naloxone HCl (Narcan Inj) 0.4 mg IV.PUSH UNSCH PRN PRN Reason: SEE LABEL COMMENTS Ondansetron HCl (Zofran Inj) 4 mg IV.PUSH Q6H PRN PRN Reason: NAUSEA OR VOMITING Sodium Chloride (Ns Flush) 2 ml IV.FLUSH BID CARLEY Sodium Chloride (Ns Flush) 2 ml IV.FLUSH PRN PRN PRN Reason: FLUSH AFTER USING IV ACCESS Physical Exam Vital signs: Last Vital Signs Temp 98.3 F 04/30/18 08:17 Pulse 101 H 04/30/18 08:17 Resp 18 04/30/18 13:00 BP 118/57 L 04/30/18 08:17 Pulse Ox 98 04/30/18 08:17 Intake & Output 04/28/18 04/29/18 04/30/18 05/01/18 06:59 06:59 06:59 06:59 Intake Total 0 / 0 Balance 0 / 2200 Weight 68.039 kg Narrative: GENERAL: Well-nourished well-developed female no acute distress laying in bed. SKIN: Warm and dry. HEAD: Atraumatic. Normocephalic. EYES: Pupils equal and round. No scleral icterus. No injection or drainage. ENT: No nasal bleeding or discharge. Mucous membranes pink and moist. NECK: Trachea midline. No JVD. CARDIOVASCULAR: Regular rate and rhythm. RESPIRATORY: No accessory muscle use. Clear to auscultation. Breath sounds equal bilaterally. GASTROINTESTINAL: Abdomen soft, right lower quadrant tenderness, no rebound guarding, nondistended. Normoactive bowel sounds MUSCULOSKELETAL: Extremities without clubbing, cyanosis, or edema. No obvious deformities. NEUROLOGICAL: Awake and alert to person place time. No obvious cranial nerve deficits. Motor grossly within normal limits. Five out of 5 muscle strength in the arms and legs. Normal speech. PSYCHIATRIC: Appropriate mood and affect; insight and judgment normal. Results Labs CBC & Chem 7: 04/30/18 09:30 04/30/18 09:30 Imaging Impressions Abdomen/Pelvis CT 04/30/18 09:14 CONCLUSION: Abnormal exam demonstrating mixed density masslike area right lower quadrant adjacent to cecum with slightly prominent lymph nodes at this site. Possibility of a ruptured appendix and periappendiceal abscess is the primary consideration is a normal appendix is not visualized. Additionally there are large cysts in the left ovary with slight fluid in the right adnexa and a normal right ovary is not visualized. Caprini VTE Risk Assessment Caprini VTE Risk Assessment: No/Low Risk (score <= 1) Caprini Risk Assessment Model: Point Value = 1 Point Value = 2 Point Value = 3 Point Value = 5 Age 41-60 Minor surgery BMI > 25 kg/m2 Swollen legs Varicose veins or History of unexplained or recurrent spontaneous Oral contraceptives or hormone replacement Sepsis (< 1 month) Serious lung disease, including pneumonia (< 1 month) Abnormal pulmonary function Acute myocardial infarction Congestive heart failure (< 1 month) History of inflammatory bowel disease Medical patient at bed rest Age 61-74 Arthroscopic surgery Major open surgery (> 45 min) Laparoscopic surgery (> 45 min) Malignancy Confined to bed (> 72 hours) Immobilizing plaster cast Central venous access Age >= 75 History of VTE Family history of VTE Factor V Leiden Prothrombin [id number] Lupus anticoagulant Anticardiolipin antibodies Elevated serum homocysteine Heparin-induced thrombocytopenia Other congenital or acquired thrombophilia Stroke (< 1 month) Elective arthroplasty Hip, pelvis, or leg fracture Acute spinal cord injury (< 1 month) Prophylaxis Regimen: Total Risk Factor Score Risk Level Prophylaxis Regimen 0-1 Low Early ambulation 2 Moderate Order ONE of the following: *Sequential Compression Device (SCD) *Heparin 5000 units SQ BID 3-4 Higher Order ONE of the following medications: *Heparin 5000 units SQ TID *Enoxaparin/Lovenox 40 mg SQ daily (WT < 150 kg, CrCl > 30 mL/min) *Enoxaparin/Lovenox 30 mg SQ daily (WT < 150 kg, CrCl > 10-29 mL/min) *Enoxaparin/Lovenox 30 mg SQ BID (WT < 150 kg, CrCl > 30 mL/min) AND/OR *Sequential Compression Device (SCD) 5 or more Highest Order ONE of the following medications: *Heparin 5000 units SQ TID (Preferred with Epidurals) *Enoxaparin/Lovenox 40 mg SQ daily (WT < 150 kg, CrCl > 30 mL/min) *Enoxaparin/Lovenox 30 mg SQ daily (WT < 150 kg, CrCl > 10-29 mL/min) *Enoxaparin/Lovenox 30 mg SQ BID (WT < 150 kg, CrCl > 30 mL/min) AND *Sequential Compression Device (SCD) Assessment and Plan (1) Acute appendicitis: Code(s): K35.80 - Unspecified acute appendicitis Status: Acute Plan 37-year-old female with a history of asthma presents with a 4-day history of intractable abdominal pain associate with nausea vomiting chills or fever Suspect ruptured appendix versus appendiceal abscess -IV fluid hydration supportive care. IV morphine as needed for pain, general surgery consultation for further recommendations and surgical intervention. Continue IV Levaquin and Flagyl IV. NPO. History of asthma, not in acute exacerbation, continue with albuterol inhaler as needed for shortness of breath. Hypokalemia. Replete, currently on normal saline with 20 meq of Kcl Abnormal UA with dysuria - follow-up with final urine culture, on Levaquin _ (1) Acute appendicitis Qualifiers: Acute appendicitis type: Appendicitis abscess presence: Appendicitis gangrene presence: Appendicitis perforation presence:
--- NOTE | 2018-04-30 17:38 | MB ---
cc: Narciso Thomas MD DATE: 04/30/2018 CHIEF COMPLAINT: Abdominal pain, perforated appendicitis. PACKING LINE OPERATOR: Dr. Sena. HISTORY OF PRESENT ILLNESS: The patient is a 37-year-old female who presents with acute onset of abdominal pain. The patient states a 4-day history of abdominal pain that continued to get worse. She noted initially midline epigastric pain, which migrated to the right lower quadrant, was 10/10, comes and goes, some relief with IV pain medication and worse with movement, better with lying still. She has had no associated fevers or chills. She came in the emergency department for further evaluation including labs, WBC of 11.[address] scan showing acute appendicitis with appendiceal abscess 7.7 x 5.6 cm. The patient denies any pain significant like this before. She denies any diarrhea or constipation. PAST MEDICAL HISTORY: Asthma. PAST SURGICAL HISTORY: No surgical history. SOCIAL HISTORY: Occasional ETOH, positive smoking. ALLERGIES: NO KNOWN DRUG ALLERGIES. MEDICATIONS: See electronic medical record. FAMILY HISTORY: Mother with diabetes, hypertension and coronary artery disease. REVIEW OF SYSTEMS: GENERAL: Complains of fever or chills. HEENT: Denies eye pain, ear pain. NECK: No swelling or pain. LUNGS: No cough or wheeze. HEART: Denies palpitations or chest pain. ABDOMEN: Complains of abdominal pain, nausea, or vomiting. GENITOURINARY: Denies dysuria or hematuria. Denies polyuria or polydipsia. INTEGUMENT: Denies any masses or lesions. PHYSICAL EXAMINATION: GENERAL: The patient in no acute distress. VITAL SIGNS: Temperature 98.3, pulse 101, respiration 19, blood pressure 118/57, saturation 98%. HEENT: Pupils equal, round, reactive. NECK: Supple. Trachea midline. LUNGS: Clear to auscultation bilaterally. HEART: S1, S2. Regular rate and rhythm. ABDOMEN: Soft, positive tenderness to palpation in the right lower quadrant. No guarding, no rebound. Somewhat diffuse tenderness. EXTREMITIES: Warm and well perfused. NEUROLOGIC: GCS of 15. 5/5 motor in all extremities. INTEGUMENT: No obvious masses or lesions. LABORATORY AND DIAGNOSTIC DATA: WBC 11.8, hemoglobin 12.2, hematocrit 36.2, platelets 355. Sodium 135, potassium 3.4, chloride 101, BUN 4, creatinine 0.8, magnesium 2.1, AST 7, ALT 12, lipase 43. CT reviewed by myself showing a right lower quadrant concern for perforated appendicitis with localized abscess 7.7 x 5.6 cm. ASSESSMENT: The patient is a 37-year-old female perforated appendicitis. PLAN: After full workup, the patient with the above-named issues. At this point, patient can be clear liquids, n.p.o. after midnight. Discussed with interventional radiology for IR drain placement. If IR is unable to drain, then we will proceed with operative intervention including laparoscopic appendectomy, drain placement and abscess drainage. Discussed with the patient in detail. Again, the patient needs to be n.p.o., IV fluids, pain control, IV antibiotics. We will follow the patient closely and await interventional radiology findings. Discussed with Dr. Camargo. MD JOSE Kohler/ct , 05:04 PM , 05:13 PM
[2018-04-30 18:24] LABS: Activated Partial Thrombo Time 32.1 sec (23.4-31.7); INR 1.2 Ratio
[2018-05-01] MEDS: Morphine Inj 4 MG/ML Vial IV.PUSH PRN ×8 (00:04→21:58)
--- NOTE | 2018-05-01 05:18 | P.PNGS ---
Subjective Patient reports: feels better, still having pain (low grade fever) Physical Exam Vital signs: Vital Signs 04/30/18 08:17 04/30/18 13:00 04/30/18 16:40 Temperature 98.3 F Pulse Rate 101 H Respiratory Rate 19 18 16 Blood Pressure 118/57 L Pulse Oximetry 98 04/30/18 17:25 04/30/18 18:25 04/30/18 20:00 Temperature 100.1 F H 99.5 F Pulse Rate 102 H 104 H Respiratory Rate 17 18 18 Blood Pressure 119/71 102/57 L Pulse Oximetry 98 98 05/01/18 00:00 05/01/18 04:00 Temperature 100.3 F H 100.8 F H Pulse Rate 102 H 96 H Respiratory Rate 18 18 Blood Pressure 105/59 L 101/51 L Pulse Oximetry 96 98 Intake & Output 04/30/18 04/30/18 05/01/18 06:59 18:59 06:59 Intake Total 2200 / 2200 1200 / 1200 Balance 2200 / 2200 1200 / 1200 Weight 68.039 kg 74.5 kg Intake: IV 2200 / 2200 1200 / 1200 NS + KCl 20 mEq Inj 1,000 ML @ 1000 / 1000 100 mls/hr IV.CONT .Q10H [facility] Rx #:[id number] NS Inj 1,000 ML @ 84 mls/hr IV. 0 / 0 CONT .[id number] [facility] Rx#:[id number] Levaquin 500 mg Premix Inj 500 100 / 100 mg In 100 ml @ 100 mls/hr IV. SIG ONCE ONE Rx#:[id number] NS Inj 1,000 ML @ Wide Open IV. 1999 / 1999 SIG BOLUS ONE Rx#:[id number] Flagyl 500 MG Inj 100 ML @ 100 100 / 100 200 / 200 mls/hr IV.SIG Q8H [facility] Rx#: [id number] Other: Weight On Admission 74.5 kg - Routine Abdominal Exam Present: soft (+ttp rlq) Results - Labs 04/30/18 09:30 04/30/18 09:30 Laboratory Results - last 24 hr 04/30/18 04/30/18 04/30/18 09:30 09:30 09:30 WBC 11.8 H RBC 4.38 Hgb 12.2 Hct 36.2 MCV 82.6 MCH 27.9 MCHC 33.7 RDW 15.5 Plt Count 355 MPV 8.0 Neut % (Auto) 73.8 H Lymph % (Auto) 9.6 [place] % (Auto) 16.3 H Eos % (Auto) 0.2 Baso % (Auto) 0.1 Neut # (Auto) 8.7 H Lymph # (Auto) 1.1 [place] # (Auto) 1.9 H Eos # (Auto) 0.0 Baso # (Auto) 0.0 WBC Differential . Differential Comment Auto diff final PT INR APTT Sodium 135 L Potassium 3.4 L Chloride 101 Carbon Dioxide 28.0 Anion Gap 6 BUN 4 L Creatinine 0.80 Estimated GFR Greater than 89 Random Glucose 93 Calcium 8.7 Magnesium 2.1 Total Bilirubin 0.9 AST 7 L ALT 12 Alkaline Phosphatase 55 Total Protein 7.8 Albumin 2.9 L Lipase 43 L Urine Color Yellow Urine Clarity Hazy H Urine pH 6.0 Ur Specific Carbon 1.008 Urine Protein Negative Urine Glucose (UA) Negative Urine Ketones Negative Urine Occult Blood Small H Urine Nitrate Negative Urine Bilirubin Negative Urine Urobilinogen 4 or greater Ur Leukocyte Esterase Trace H Urine RBC 3 Urine WBC 12 H Ur Squamous Epith Cells 8 Urine Bacteria Rare H Urine Mucus Few H Micro UA Comment Culture indicated Ur Microscopic Review Not Reportable Urine Culture Comments Culture indicated 04/30/18 17:51 WBC RBC Hgb Hct MCV MCH MCHC RDW Plt Count MPV Neut % (Auto) Lymph % (Auto) [place] % (Auto) Eos % (Auto) Baso % (Auto) Neut # (Auto) Lymph # (Auto) [place] # (Auto) Eos # (Auto) Baso # (Auto) WBC Differential Differential Comment PT 12.0 H INR 1.2 APTT 32.1 H Sodium Potassium Chloride Carbon Dioxide Anion Gap BUN Creatinine Estimated GFR Random Glucose Calcium Magnesium Total Bilirubin AST ALT Alkaline Phosphatase Total Protein Albumin Lipase Urine Color Urine Clarity Urine pH Ur Specific Carbon Urine Protein Urine Glucose (UA) Urine Ketones Urine Occult Blood Urine Nitrate Urine Bilirubin Urine Urobilinogen Ur Leukocyte Esterase Urine RBC Urine WBC Ur Squamous Epith Cells Urine Bacteria Urine Mucus Micro UA Comment Ur Microscopic Review Urine Culture Comments - Imaging Imaging: ITS Impressions Abdomen/Pelvis CT 04/30/18 09:14 CONCLUSION: Abnormal exam demonstrating mixed density masslike area right lower quadrant adjacent to cecum with slightly prominent lymph nodes at this site. Possibility of a ruptured appendix and periappendiceal abscess is the primary consideration is a normal appendix is not visualized. Additionally there are large cysts in the left ovary with slight fluid in the right adnexa and a normal right ovary is not visualized. Assessment and Plan - Plan Perforated appendicitis with abscess PLAN NPO IR drain today, if unable then will consider surgical drain and possible appendectomy iv abx pain control discussed with patient and radiology
[2018-05-01 06:41] LABS: Baso % (Auto) 0.4 % (0.0-2.0); Eos # (Auto) 0.1 th/mm3 (0.0-0.4); Eos % (Auto) 0.6 % (0.0-4.0); Hematocrit 32.9 % (35.0-46.0); Hemoglobin 11.1 gm/dL (11.6-15.3); Lymph # (Auto) 1.1 th/mm3 (1.0-4.8); Lymph % (Auto) 10.1 % (9.0-44.0); Mean Corpuscular HGB Conc 33.8 % (32.0-36.0); Mean Corpuscular Hemoglobin 28.1 pg (27.0-34.0); Mean Corpuscular Volume 83.2 fL (80.0-100.0); Mono # (Auto) 1.9 th/mm3 (0.0-0.9); Mono % (Auto) 17.2 % (0.0-8.0); Neut # (Auto) 8.1 th/mm3 (1.8-7.7); Neut % (Auto) 71.7 % (16.0-70.0); Platelet Count 323 th/mm3 (150-450); Red Blood Count 3.96 mil/mm3 (4.00-5.30); Red Cell Distribution Width 15.8 % (11.6-17.2); White Blood Count 11.2 th/mm3 (4.0-11.0)
[2018-05-01 06:55] LABS: Anion Gap 7 meq/L (5-15); Blood Urea Nitrogen 3 mg/dL (7-18); Calcium 8.2 mg/dL (8.5-10.1); Carbon Dioxide 23.7 meq/L (21.0-32.0); Chloride 105 meq/L (98-107); Glomerular Filtration Rate Greater Than 89 mL/min (>89); Glucose,Random 97 mg/dL (74-106); Potassium 3.5 meq/L (3.5-5.1); Sodium 136 meq/L (136-145)
[2018-05-01] MEDS ORDERED: Diatrizoate Meglum/Diatrizoate Sod Liq 9 ML UDC PO ONE (07:00)
[2018-05-01] MEDS ORDERED: levoFLOXacin 750 MG Tablet PO SCH (09:00)
[2018-05-01] MEDS ORDERED: fentaNYL Citrate Inj 250 MCG/5 ML Ampul ONE (10:39)
[2018-05-01] MEDS ORDERED: Lidocaine 1%/Epinephrine 1:100,000 Inj 20 ML Vial ONE (10:41)
--- NOTE | 2018-05-01 11:19 | P.PNIM ---
Subjective Interval history: Follow-up visit appendicitis, ruptured. Patient seen and examined today. Reports improved pain compared to admission. Denies any nausea or vomiting. Has not had a bowel movement. States that she has low-grade fever overnight. Otherwise, denies SOB/ dyspnea. Denies chest pain, palpitations, headaches, dizziness. Denies fevers, chills. Denies dysuria. Physical Exam Vital signs: Vital Signs 04/30/18 13:00 04/30/18 16:40 04/30/18 17:25 Temperature 100.1 F H Pulse Rate 102 H Respiratory Rate 18 16 17 Blood Pressure 119/71 Pulse Oximetry 98 04/30/18 18:25 04/30/18 20:00 05/01/18 00:00 Temperature 99.5 F 100.3 F H Pulse Rate 104 H 102 H Respiratory Rate 18 18 18 Blood Pressure 102/57 L 105/59 L Pulse Oximetry 98 96 05/01/18 04:00 05/01/18 08:00 05/01/18 09:51 Temperature 100.8 F H 97.7 F Pulse Rate 96 H 82 83 Respiratory Rate 18 16 16 Blood Pressure 101/51 L 99/61 L 100/59 L Pulse Oximetry 98 99 Intake & Output 04/30/18 05/01/18 05/01/18 18:59 06:59 18:59 Intake Total 2200 / 2200 1320 / 1320 Balance 2200 / 2200 1320 / 1320 Weight 68.039 kg 74.5 kg Intake: IV 2200 / 2200 1200 / 1200 NS + KCl 20 mEq Inj 1,000 ML @ 1000 / 1000 100 mls/hr IV.CONT .Q10H [facility] Rx #:[id number] NS Inj 1,000 ML @ 84 mls/hr IV. 0 / 0 CONT .[id number] [facility] Rx#:[id number] Levaquin 500 mg Premix Inj 500 100 / 100 mg In 100 ml @ 100 mls/hr IV. SIG ONCE ONE Rx#:[id number] NS Inj 1,000 ML @ Wide Open IV. 1999 / 1999 SIG BOLUS ONE Rx#:[id number] Flagyl 500 MG Inj 100 ML @ 100 100 / 100 200 / 200 mls/hr IV.SIG Q8H [facility] Rx#: [id number] Oral 120 / 120 Other: # Voids 3 Date of Last Bowel Movement 04/27/18 Weight On Admission 74.5 kg Narrative: GENERAL: This is a well-nourished, well-developed patient, in no apparent distress. SKIN: Warm and dry. HEENT: Normocephalic. Pupils equal round and reactive. Nose without bleeding. Airway patent. NECK: Trachea midline. CARDIOVASCULAR: Regular rate and rhythm without murmurs, gallops, or rubs. RESPIRATORY: Clear to auscultation. Breath sounds equal bilaterally. No wheezes , rales, or rhonchi. GASTROINTESTINAL: Abdomen soft, nondistended. Bowel Sounds hypoactive.. Abdominal tenderness right lower quadrant MUSCULOSKELETAL: Extremities without clubbing, cyanosis, or edema. NEUROLOGICAL: Awake and alert. Oriented to time, place, person. No focal neuro deficit. Moves all extremities. Normal speech. Results - Labs CBC & Chem 7: 05/01/18 05:47 05/01/18 05:47 Laboratory Results - last 24 hr 04/30/18 05/01/18 05/01/18 17:51 05:47 05:47 WBC 11.2 H RBC 3.96 L Hgb 11.1 L Hct 32.9 L MCV 83.2 MCH 28.1 MCHC 33.8 RDW 15.8 Plt Count 323 MPV 8.0 Neut % (Auto) 71.7 H Lymph % (Auto) 10.1 [place] % (Auto) 17.2 H Eos % (Auto) 0.6 Baso % (Auto) 0.4 Neut # (Auto) 8.1 H Lymph # (Auto) 1.1 [place] # (Auto) 1.9 H Eos # (Auto) 0.1 Baso # (Auto) 0.0 WBC Differential . Differential Comment Auto diff final PT 12.0 H INR 1.2 APTT 32.1 H Sodium 136 Potassium 3.5 Chloride 105 Carbon Dioxide 23.7 Anion Gap 7 BUN 3 L Creatinine 0.51 Estimated GFR Greater than 89 Random Glucose 97 Calcium 8.2 L - Imaging Impressions Abdomen/Pelvis CT 04/30/18 09:14 CONCLUSION: Abnormal exam demonstrating mixed density masslike area right lower quadrant adjacent to cecum with slightly prominent lymph nodes at this site. Possibility of a ruptured appendix and periappendiceal abscess is the primary consideration is a normal appendix is not visualized. Additionally there are large cysts in the left ovary with slight fluid in the right adnexa and a normal right ovary is not visualized. Assessment and Plan - Assessment (1) Acute appendicitis Code(s): K35.80 - Unspecified acute appendicitis Status: Acute - Plan 37-year-old white female with a history of asthma presents emergency room with 4 -day history of epigastric sharp stabbing pain with generalized bandlike radiation associated with intractable nausea, nonbilious vomiting with chills and fevers. Suspect ruptured appendix versus appendiceal abscess -IV fluid hydration supportive care. -IV morphine as needed for pain, general surgery consultation, appreciate recommendations. Plan for diagnostic testing and possible appendectomy today. -Continue IV Levaquin and Flagyl IV. NPO. History of asthma, not in acute exacerbation -continue with albuterol inhaler as needed for shortness of breath. Hypokalemia -Replete, currently on normal saline with 20 meq of Kcl Abnormal UA with dysuria -follow-up with final urine culture, on Levaquin DVT SCDs, preop Full code Discussed Condition With: Patient, nurse Discharge Planning: Plan to DC home when clinically improved, pending appendectomy
[2018-05-01] MEDS ORDERED: Bupivacaine/Epinephrine Inj 0.25% 50 ML Vial ONE (18:04)
[2018-05-01] MEDS ORDERED: Ciprofloxacin 400 MG/200 ML 400 MG/200 ML PIGGYBACK IV.SIG ONE (19:28)
--- NOTE | 2018-05-01 19:35 | P.OP ---
- Preoperative Diagnosis (1) Intra-abdominal abscess (2) Acute appendicitis - Postoperative Diagnosis (1) Acute appendicitis (2) Intra-abdominal abscess Procedure: dx lap, lap drainage of intraabdominal abscess Anesthesia: GETA Surgeon: Narciso Thomas MD Estimated blood loss (mL): 5 Operation and Findings: abscess
[2018-05-01] MEDS ORDERED: Sugammadex Inj 200 MG/2 ML Vial IV.PUSH ONE (20:45)
[2018-05-01] MEDS ORDERED: fentaNYL Citrate Inj 100 MCG/2 ML Ampul ONE (20:46)
[2018-05-01] MEDS: Acetaminophen 325 MG Tablet PO PRN (22:06)
[2018-05-02] MEDS: Morphine Inj 4 MG/ML Vial IV.PUSH PRN ×6 (01:33→20:59)
[2018-05-02] MEDS: Acetaminophen 325 MG Tablet PO PRN (05:16)
[2018-05-02 06:53] LABS: Hematocrit 33.1 % (35.0-46.0); Hemoglobin 11.2 gm/dL (11.6-15.3); Lymph # (Auto) 0.5 th/mm3 (1.0-4.8); Lymph % (Auto) 3.9 % (9.0-44.0); Mean Corpuscular Hemoglobin 28.4 pg (27.0-34.0); Mean Corpuscular Volume 83.6 fL (80.0-100.0); Mean Platelet Volume 7.7 fL (7.0-11.0); Mono # (Auto) 0.3 th/mm3 (0.0-0.9); Mono % (Auto) 2.4 % (0.0-8.0); Neut # (Auto) 12.4 th/mm3 (1.8-7.7); Neut % (Auto) 93.7 % (16.0-70.0); Platelet Count 348 th/mm3 (150-450); Red Blood Count 3.96 mil/mm3 (4.00-5.30); Red Cell Distribution Width 15.8 % (11.6-17.2); White Blood Count 13.2 th/mm3 (4.0-11.0)
[2018-05-02 07:26] LABS: Alanine Aminotransferase 10 U/L (10-53); Albumin 2.3 g/dL (3.4-5.0); Alkaline Phosphatase 53 U/L (45-117); Anion Gap 7 meq/L (5-15); Aspartate Aminotransferase 7 U/L (15-37); Blood Urea Nitrogen 4 mg/dL (7-18); Calcium 8.4 mg/dL (8.5-10.1); Carbon Dioxide 24.5 meq/L (21.0-32.0); Chloride 108 meq/L (98-107); Glomerular Filtration Rate Greater Than 89 mL/min (>89); Glucose,Random 110 mg/dL (74-106); Potassium 4.3 meq/L (3.5-5.1); Sodium 139 meq/L (136-145); Total Protein 6.8 g/dL (6.4-8.2)
--- NOTE | 2018-05-02 09:35 | CT ---
EXAM DATE: 05/01/2018 2:31 PM EST AGE/SEX: 37 years / Female INDICATIONS: Perforated appendicitis. CLINICAL DATA: This is the patient's initial encounter. Patient reports that signs and symptoms have been present for 1 day and indicates a pain score of 7/10. MEDICAL/SURGICAL HISTORY: Asthma. None. COMPARISON: No prior exams available for comparison. SEDATION TIME (min): 18 BIOPSY SITE: pelvic abscess MEDICATION(S): 2.5mg midazolam (Versed) IV 125mcg fentanyl (Sublimaze) IV DEVICE(S): 17 gauge BARD biopsy needle FLUID: Total volume of of fluid was removed. . . . PROCEDURE : CT guided attempted drainage of pelvic abscess The risks, benefits and alternatives to the procedure were explained and verbal and written consent w as obtained. Using automated exposure control and adjustment of the mA and/or kV according to patient size, radiation dose was kept as low as reasonably achievable to obtain optimal diagnostic quality i mages. The site was prepped in sterile fashion. Full sterile technique was used, including cap, ma sk, sterile gloves and gown and a large sterile sheet. Hand hygiene and 2% chlorhexidine and/or beta dine/alcohol prep was utilized per protocol for cutaneous antisepsis. The skin and subcutaneous tiss ues were infiltrated with local anesthetic solution. DICOM format image data is available electronic ally for review and comparison. CT examination of the pelvis confirms extensive inflammatory change in the right lower quadrant with central fluid collection. There is a very subtle anterior iliac window. Skin was prepped and draped i n usual sterile fashion. Lidocaine was injected for local anesthesia. A 19-gauge true guide Bard need le was advanced to the region of the fluid collection using careful technique, lidocaine hydrodissect ion, and blunt tip stylet. Patient had significant discomfort with advancement of the needle in the i nflammatory milieu. No fluid could be aspirated with final needle position although there was some ve nous return through the needle. Given the significant patient discomfort and lack of aspirated fluid, decision was made not to attempt guidewire and catheter placement. Small amount of Gelfoam was admin istered through the needle as it was withdrawn through the tract. Needle was then removed. The patient tolerated the procedure well and there were no complications. The patient tolerated the procedure well and there were no complications. The patient was sent to post anesthesia recovery in s table condition. CONCLUSION: 1. Redemonstration of extensive inflammatory change in the right lower quadrant with central fluid c ollection. There is a very small percutaneous drainage window. 2. Attempted CT-guided drainage was aborted due to significant patient discomfort and lack of fluid aspiration despite final needle position within the central low density region. See above. Electronically signed by: Robin Camargo MD Board Certified Radiologist 05/02/2018 9:33 AM EST
--- NOTE | 2018-05-02 10:31 | P.PNIM ---
Subjective Interval history: Follow-up visit appendicitis, ruptured, status post lap drainage of intra- abdominal abscesses. Patient seen and examined today. Reports he is doing a lot better. States she is ambulating well passing gas. Reports constipation. Reports pain is manageable with pain medications. Otherwise, denies SOB/ dyspnea. Denies chest pain, palpitations, headaches, dizziness. Denies fevers, chills, n/v/d. Denies dysuria. Physical Exam Vital signs: Vital Signs 05/01/18 12:39 05/01/18 16:00 05/01/18 16:52 Temperature 98.3 F 98.7 F Pulse Rate 97 H 89 Respiratory Rate 20 17 18 Blood Pressure 114/68 117/65 Pulse Oximetry 95 98 05/01/18 16:55 05/01/18 18:00 05/01/18 18:38 Temperature 99.1 F 99.2 F Pulse Rate 90 Respiratory Rate 18 Blood Pressure 110/50 L Pulse Oximetry 05/01/18 20:38 05/01/18 20:45 05/01/18 21:00 Temperature 99.3 F Pulse Rate 104 H 101 H 96 H Respiratory Rate 19 17 15 Blood Pressure 117/56 L 110/57 L 117/66 Pulse Oximetry 97 98 99 05/01/18 21:15 05/01/18 21:30 05/01/18 21:52 Temperature 98.7 F 97.3 F L Pulse Rate 92 H 94 H 92 H Respiratory Rate 17 19 16 Blood Pressure 114/62 111/61 129/72 Pulse Oximetry 98 96 96 05/02/18 00:07 05/02/18 04:09 05/02/18 08:00 Temperature 98.3 F 98.1 F 97.8 F Pulse Rate 90 89 85 Respiratory Rate 16 17 18 Blood Pressure 104/65 120/68 96/63 L Pulse Oximetry 95 96 98 Intake & Output 05/01/18 05/02/18 05/02/18 18:59 06:59 18:59 Intake Total 1400 / 1400 3819 / 3819 320 / 320 Output Total 2475 / 2475 900 / 900 Balance 1400 / 1400 1344 / 1344 -580 / -580 Weight 75 kg Intake: IV 1100 / 1100 1064 / 1064 0 / 0 NS + KCl 20 mEq Inj 1,000 ML @ 1000 / 1000 714 / 714 0 / 0 100 mls/hr IV.CONT .Q10H [facility] Rx #:[id number] Levaquin 750 mg Premix Inj 150 150 / 150 ML @ 100 mls/hr IV.SIG Q24H [facility] Rx#:[id number] Flagyl 500 MG Inj 100 ML @ 100 100 / 100 200 / 200 mls/hr IV.SIG Q8H [facility] Rx#: [id number] Oral 300 / 300 255 / 255 320 / 320 Anesthesia Amount 2500 / 2500 Output: Urine 900 / 900 Estimated Blood Loss 5 / 5 Urine Amount (Catheter) 2350 / 2350 Indwelling Urethral Catheter 2350 / 2350 Wound Drainage 120 / 120 Lower Abdomen 120 / 120 Other: # Voids 4 1 Date of Last Bowel Movement 04/27/18 04/27/18 # Bowel Movements 0 Narrative: GENERAL: This is a well-nourished, well-developed patient, in no apparent distress. SKIN: Warm and dry. HEENT: Normocephalic. Pupils equal round and reactive. Nose without bleeding. Airway patent. NECK: Trachea midline. CARDIOVASCULAR: Regular rate and rhythm without murmurs, gallops, or rubs. RESPIRATORY: Clear to auscultation. Breath sounds equal bilaterally. No wheezes , rales, or rhonchi. GASTROINTESTINAL: Abdomen soft, nondistended. Bowel Sounds hypoactive. Abdominal tenderness. Abdominal incisions clean dry and intact. LADAN drain serosanguineous, moderate MUSCULOSKELETAL: Extremities without clubbing, cyanosis, or edema. NEUROLOGICAL: Awake and alert. Oriented to time, place, person. No focal neuro deficit. Moves all extremities. Normal speech. - Urinary Catheter Management Indwelling Urethral Catheter Cath placed during this visit: yes Reason for continuing: Other continuation reason Insertion date: 05/01/18 Results - Labs CBC & Chem 7: 05/02/18 06:11 05/02/18 06:11 Laboratory Results - last 24 hr 05/02/18 05/02/18 06:11 06:11 WBC 13.2 H RBC 3.96 L Hgb 11.2 L Hct 33.1 L MCV 83.6 MCH 28.4 MCHC 34.0 RDW 15.8 Plt Count 348 MPV 7.7 Neut % (Auto) 93.7 H Lymph % (Auto) 3.9 L [place] % (Auto) 2.4 Eos % (Auto) 0.0 Baso % (Auto) 0.0 Neut # (Auto) 12.4 H Lymph # (Auto) 0.5 L [place] # (Auto) 0.3 Eos # (Auto) 0.0 Baso # (Auto) 0.0 WBC Differential . Differential Comment Auto diff final Sodium 139 Potassium 4.3 D Chloride 108 H Carbon Dioxide 24.5 Anion Gap 7 BUN 4 L Creatinine 0.52 Estimated GFR Greater than 89 Random Glucose 110 H Calcium 8.4 L Total Bilirubin 0.5 AST 7 L ALT 10 Alkaline Phosphatase 53 Total Protein 6.8 D Albumin 2.3 L D Microbiology 04/30/18 09:30 Clean Catch Urine Urine Culture - Final No growth in 48 hours - Imaging Impressions Abscess Drainage CT 05/01/18 00:00 CONCLUSION: 1. Redemonstration of extensive inflammatory change in the right lower quadrant with central fluid collection. There is a very small percutaneous drainage window. 2. Attempted CT-guided drainage was aborted due to significant patient discomfort and lack of fluid aspiration despite final needle position within the central low density region. See above. Assessment and Plan - Assessment (1) Acute appendicitis Code(s): K35.80 - Unspecified acute appendicitis Status: Acute - Plan 37-year-old white female with a history of asthma presents emergency room with 4 -day history of epigastric sharp stabbing pain with generalized bandlike radiation associated with intractable nausea, nonbilious vomiting with chills and fevers. S/P drainage of intra-abdominal abscess Suspect ruptured appendix versus appendiceal abscess -IV fluid hydration supportive care. -Continue IV Levaquin and Flagyl IV. -IV morphine for breakthrough pain, [place] with bowel regimen -clear liquid diet as per surgery -Surgical team following recommends, clear liq for now, plan for poss appendectomy in the future when abscess has resolved/ improved Constipation Poss Ileus -Bowel regimen, lactulose x1 dose now History of asthma, not in acute exacerbation -continue with albuterol inhaler as needed for shortness of breath. Hypokalemia -Replete, currently on normal saline with 20 meq of Kcl Abnormal UA with dysuria -cultures no growth to date -On Levaquin for ruptured appendix DVT SCDs, preop Full code Discussed Condition With: Patient, nursing Discharge Planning: Plan to DC home when clinically improved, surgical clearance needed. Poss appendectomy
[2018-05-02] MEDS ORDERED: Bisacodyl 10 MG Supp RECTAL PRN (10:32)
--- NOTE | 2018-05-02 11:11 | P.PNGS ---
Subjective Patient reports: no new complaints, feels better, flatus Physical Exam Vital signs: Vital Signs 05/01/18 12:39 05/01/18 16:00 05/01/18 16:52 Temperature 98.3 F 98.7 F Pulse Rate 97 H 89 Respiratory Rate 20 17 18 Blood Pressure 114/68 117/65 Pulse Oximetry 95 98 05/01/18 16:55 05/01/18 18:00 05/01/18 18:38 Temperature 99.1 F 99.2 F Pulse Rate 90 Respiratory Rate 18 Blood Pressure 110/50 L Pulse Oximetry 05/01/18 20:38 05/01/18 20:45 05/01/18 21:00 Temperature 99.3 F Pulse Rate 104 H 101 H 96 H Respiratory Rate 19 17 15 Blood Pressure 117/56 L 110/57 L 117/66 Pulse Oximetry 97 98 99 05/01/18 21:15 05/01/18 21:30 05/01/18 21:52 Temperature 98.7 F 97.3 F L Pulse Rate 92 H 94 H 92 H Respiratory Rate 17 19 16 Blood Pressure 114/62 111/61 129/72 Pulse Oximetry 98 96 96 05/02/18 00:07 05/02/18 04:09 05/02/18 08:00 Temperature 98.3 F 98.1 F 97.8 F Pulse Rate 90 89 85 Respiratory Rate 16 17 18 Blood Pressure 104/65 120/68 96/63 L Pulse Oximetry 95 96 98 Intake & Output 05/01/18 05/02/18 05/02/18 18:59 06:59 18:59 Intake Total 1400 / 1400 3819 / 3819 320 / 320 Output Total 2475 / 2475 900 / 900 Balance 1400 / 1400 1344 / 1344 -580 / -580 Weight 75 kg Intake: IV 1100 / 1100 1064 / 1064 0 / 0 NS + KCl 20 mEq Inj 1,000 ML @ 1000 / 1000 714 / 714 0 / 0 100 mls/hr IV.CONT .Q10H [facility] Rx #:[id number] Levaquin 750 mg Premix Inj 150 150 / 150 ML @ 100 mls/hr IV.SIG Q24H [facility] Rx#:[id number] Flagyl 500 MG Inj 100 ML @ 100 100 / 100 200 / 200 mls/hr IV.SIG Q8H [facility] Rx#: [id number] Oral 300 / 300 255 / 255 320 / 320 Anesthesia Amount 2500 / 2500 Output: Urine 900 / 900 Estimated Blood Loss 5 / 5 Urine Amount (Catheter) 2350 / 2350 Indwelling Urethral Catheter 2350 / 2350 Wound Drainage 120 / 120 Lower Abdomen 120 / 120 Other: # Voids 4 1 Date of Last Bowel Movement 04/27/18 04/27/18 # Bowel Movements 0 - Routine Abdominal Exam Present: soft, tenderness (del serosang) - Urinary Catheter Management Indwelling Urethral Catheter Cath placed during this visit: yes Reason for continuing: Other continuation reason Insertion date: 05/01/18 Results - Labs 05/02/18 06:11 05/02/18 06:11 Laboratory Results - last 24 hr 05/02/18 05/02/18 06:11 06:11 WBC 13.2 H RBC 3.96 L Hgb 11.2 L Hct 33.1 L MCV 83.6 MCH 28.4 MCHC 34.0 RDW 15.8 Plt Count 348 MPV 7.7 Neut % (Auto) 93.7 H Lymph % (Auto) 3.9 L [place] % (Auto) 2.4 Eos % (Auto) 0.0 Baso % (Auto) 0.0 Neut # (Auto) 12.4 H Lymph # (Auto) 0.5 L [place] # (Auto) 0.3 Eos # (Auto) 0.0 Baso # (Auto) 0.0 WBC Differential . Differential Comment Auto diff final Sodium 139 Potassium 4.3 D Chloride 108 H Carbon Dioxide 24.5 Anion Gap 7 BUN 4 L Creatinine 0.52 Estimated GFR Greater than 89 Random Glucose 110 H Calcium 8.4 L Total Bilirubin 0.5 AST 7 L ALT 10 Alkaline Phosphatase 53 Total Protein 6.8 D Albumin 2.3 L D - Imaging Imaging: ITS Impressions Abdomen/Pelvis CT 04/30/18 09:14 CONCLUSION: Abnormal exam demonstrating mixed density masslike area right lower quadrant adjacent to cecum with slightly prominent lymph nodes at this site. Possibility of a ruptured appendix and periappendiceal abscess is the primary consideration is a normal appendix is not visualized. Additionally there are large cysts in the left ovary with slight fluid in the right adnexa and a normal right ovary is not visualized. Abscess Drainage CT 05/01/18 00:00 CONCLUSION: 1. Redemonstration of extensive inflammatory change in the right lower quadrant with central fluid collection. There is a very small percutaneous drainage window. 2. Attempted CT-guided drainage was aborted due to significant patient discomfort and lack of fluid aspiration despite final needle position within the central low density region. See above. Assessment and Plan - Plan Perforated appendicitis with abscess POD1 Lap drainage of appendiceal abscess PLAN slowly advance diet iv abx pain control dvt ppx remove bruno
[2018-05-02] MEDS ORDERED: Water Sterile for Irr Bot 700 ML, Lactulose Liq 300 ML RECTAL ONE ×2 (13:00)
--- NOTE | 2018-05-02 13:42 | MP ---
cc: Narciso Thomas MD DATE OF OPERATION: 05/01/2018 PREOPERATIVE DIAGNOSIS: Perforated appendicitis with abscess. POSTOPERATIVE DIAGNOSIS: Perforated appendicitis with abscess. PROCEDURE PERFORMED: Laparoscopic drainage of intra-abdominal abscess. SURGEON: Narciso Thomas MD LIVESTOCK SHOWMAN: None. ANESTHESIA: GETA. IV FLUIDS: See anesthesia sheet. ESTIMATED BLOOD LOSS: 5 mL. DRAINS: A 19-Ind[place]ian Carlo drain. COMPLICATIONS: None. WOUND CLASSIFICATION: Contaminated. SPECIMENS: None. FINDINGS: Large purulent pus-filled cavity, thick indurated adhesion and inflammatory process to the right lower quadrant. Partial appendix identified. INDICATION: The patient is a 37-year-old female who presented with acute onset of abdominal pain. The patient's pain started approximately 4-5 days ago and continued to get worse. The patient had intermittent fevers. Came to the emergency department for further evaluation including a CT scan with a 7.7 cm abscess around the appendix. Attempted IR drainage was not successful; therefore, laparoscopic drainage, possible appendectomy was discussed. DETAILS OF PROCEDURE: The patient was taken to the operative suite, placed in supine position, prepped and draped in usual sterile fashion after induction of general endotracheal anesthesia. A brief timeout done stating correct patient, procedure, surgical site. We were all in agreement. Attention first directed to the umbilicus where a supraumbilical stab ish incision was made after induction and local anesthetic. Visiport a 5 mm Optiview was done to get into the abdomen safely. Abdomen insufflated to 15 mm pneumoperitoneum. Cursory inspection noted to a somewhat dilated colon with some induration. Two other ports were placed, including a suprapubic 5 mm and in the left lower quadrant a 12 mm. The patient was placed in Trendelenburg, airplaned to the left. The right lower quadrant was explored and identified. There was noted to be adhered bowel wrapping around with a significant adhesion and inflammatory process. After meticulous attempts at dissection, the abscess cavity noted to drain significant amount of purulent pus drainage. This was suction irrigated until effluent was clear. Partial view of the appendix was noted. The appendix was contained within this abscess and dense fibrous adhesions. The ovary, fallopian tube was also on the right adhered within this inflammatory mass of tissue. After suction irrigation and at this point, I did not feel it was safe to further mobilize to attempt to remove the appendix. Therefore, a 19-Ind[place]ian Carlo drain was placed in the right lower quadrant, secured with 2-0 nylon and ports were removed. The left lower quadrant port was closed with 0 Vicryl and 4-0 Monocryl to close all subcuticular ports. Sterile dressing was placed. The patient tolerated the procedure. No intraoperative complications. All lap and instrument counts were correct at the termination of the procedure. The patient was extubated and taken to PACU. MD JOSE Kohler/nathan , 01:22 PM , 01:31 PM
[2018-05-02] MEDS: Senna/Docusate Sodium 8.6/50 MG Tablet PO SCH (21:03)
[2018-05-03] MEDS: Morphine Inj 4 MG/ML Vial IV.PUSH PRN ×2 (01:01→20:29)
[2018-05-03] MEDS: Enoxaparin Inj 30 MG/0.3 ML Syringe SQ SCH (08:29)
[2018-05-03] MEDS: Senna/Docusate Sodium 8.6/50 MG Tablet PO SCH ×2 (08:30→20:23)
--- NOTE | 2018-05-03 09:18 | P.PNGS ---
Subjective Interval history: Resting in bed Reports nausea this AM; not interested in clear liquids this morning Did have several liquid BMs overnight Physical Exam Vital signs: Vital Signs 05/02/18 12:00 05/02/18 16:00 05/02/18 20:00 Temperature 98.7 F 98 F 97.7 F Pulse Rate 79 77 89 Respiratory Rate 18 16 18 Blood Pressure 115/69 131/63 117/69 Pulse Oximetry 97 97 99 05/03/18 00:00 Temperature 98.1 F Pulse Rate 83 Respiratory Rate 18 Blood Pressure 108/56 L Pulse Oximetry 98 Intake & Output 05/02/18 05/03/18 05/03/18 18:59 06:59 18:59 Intake Total 706 / 706 636 / 636 Output Total 1255 / 1255 Balance -549 / -549 626 / 626 Weight 76.7 kg Intake: IV 386 / 386 636 / 636 NS + KCl 20 mEq Inj 1,000 ML @ 286 / 286 286 / 286 100 mls/hr IV.CONT .Q10H [facility] Rx #:[id number] Levaquin 750 mg Premix Inj 150 150 / 150 ML @ 100 mls/hr IV.SIG Q24H [facility] Rx#:[id number] Flagyl 500 MG Inj 100 ML @ 100 100 / 100 200 / 200 mls/hr IV.SIG Q8H [facility] Rx#: [id number] Oral 320 / 320 Output: Urine 1225 / 1225 Wound Drainage 30 / 30 10 / 10 Lower Abdomen 30 / 30 10 / 10 Other: # Voids 1 5 Narrative: Alert and awake Abd: mildly distended; lap sites c/d/i; DEL with sanguinous drainage; minimally tender to palpation - Urinary Catheter Management Indwelling Urethral Catheter Cath placed during this visit: yes Reason for continuing: Other continuation reason Insertion date: 05/01/18 Results - Labs 05/04/18 06:50 05/04/18 06:50 - Imaging Imaging: ITS Impressions Abdomen/Pelvis CT 04/30/18 09:14 CONCLUSION: Abnormal exam demonstrating mixed density masslike area right lower quadrant adjacent to cecum with slightly prominent lymph nodes at this site. Possibility of a ruptured appendix and periappendiceal abscess is the primary consideration is a normal appendix is not visualized. Additionally there are large cysts in the left ovary with slight fluid in the right adnexa and a normal right ovary is not visualized. Abscess Drainage CT 05/01/18 00:00 CONCLUSION: 1. Redemonstration of extensive inflammatory change in the right lower quadrant with central fluid collection. There is a very small percutaneous drainage window. 2. Attempted CT-guided drainage was aborted due to significant patient discomfort and lack of fluid aspiration despite final needle position within the central low density region. See above. Assessment and Plan - Plan 37 year old female POD2 dx lap; lap drainage in IAA -Continue routine DEL care -Continue IV antibiotics -Okay for clear liquids as long as not nausea -Patient high risk for ileus -Encouraged OOB -Will advance diet as bowel function returns - Attending Attestation patient seen at bedside clear diet abx pain control del mgnt The exam, history, and the medical decision-making described in the above note were completed with the assistance of the mid-level provider. I reviewed and agree with the findings presented. I attest that I had a [id number] encounter with the patient on the same day, and personally performed and documented my assessment and findings in the medical record.
[2018-05-03 11:54] LABS: Baso % (Auto) 0.2 % (0.0-2.0); Eos % (Auto) 0.5 % (0.0-4.0); Hematocrit 30.6 % (35.0-46.0); Hemoglobin 10.3 gm/dL (11.6-15.3); Lymph # (Auto) 1.4 th/mm3 (1.0-4.8); Lymph % (Auto) 15.9 % (9.0-44.0); Mean Corpuscular HGB Conc 33.7 % (32.0-36.0); Mean Corpuscular Hemoglobin 28.4 pg (27.0-34.0); Mean Corpuscular Volume 84.2 fL (80.0-100.0); Mean Platelet Volume 7.8 fL (7.0-11.0); Mono # (Auto) 0.9 th/mm3 (0.0-0.9); Mono % (Auto) 10.5 % (0.0-8.0); Neut # (Auto) 6.2 th/mm3 (1.8-7.7); Neut % (Auto) 72.9 % (16.0-70.0); Platelet Count 344 th/mm3 (150-450); Red Blood Count 3.64 mil/mm3 (4.00-5.30); Red Cell Distribution Width 15.7 % (11.6-17.2); White Blood Count 8.5 th/mm3 (4.0-11.0)
--- NOTE | 2018-05-03 14:30 | P.PNIM ---
Subjective Interval history: Patient reports that she was nauseous but did not have episode of emesis. Patient reports that she recently received Zofran medication is waiting to see her response. Patient reports that she does not want to have any liquids at this time and prefers to wait on the Zofran. Patient denies subjective fever or chills at this time. Patient reports passing flatus Physical Exam Vital signs: Last Vital Signs Temp 97.9 F 05/03/18 12:00 Pulse 78 05/03/18 12:00 Resp 19 05/03/18 12:00 BP 114/79 05/03/18 12:00 Pulse Ox 98 05/03/18 12:00 Intake & Output 05/01/18 05/02/18 05/03/18 05/04/18 06:59 06:59 06:59 06:59 Intake Total 3520 / 3520 5219 / 5219 1342 / 1342 100 / 100 Output Total 2475 / 2475 1265 / 1265 Balance 3520 / 3520 2744 / 2744 77 / 77 100 / 100 Weight 74.5 kg 75 kg 76.7 kg General: Appears uncomfortable HEENT: EOMI Cardiovascular: S1/S2 Respiratory: Clear to auscultation Gastroenterology: Mild abdominal distention, positive bowel sounds, no rebound, minimal guarding, relatively soft. Extremity: No calf tenderness or edema Urinary Catheter Management Indwelling Urethral Catheter: Cath placed during this visit: yes Urethral indwelling: No Insertion date: 05/01/18 Results Labs CBC & Chem 7: 05/03/18 11:15 05/02/18 06:11 Assessment and Plan (1) Acute appendicitis: Code(s): K35.80 - Unspecified acute appendicitis Status: Acute Plan 37-year-old white female with a history of asthma presents emergency room with 4 -day history of epigastric sharp stabbing pain with generalized bandlike radiation associated with intractable nausea, nonbilious vomiting with chills and fevers found to have appendicitis with intra-abdominal abscess formation status post surgical intervention. S/P drainage of intra-abdominal abscess Suspect ruptured appendix versus appendiceal abscess -Careful IV fluid hydration: Currently on normal saline plus KCl 20 mEq at 100 cc/h -Continue IV Levaquin and Flagyl IV. -IV morphine for breakthrough pain, [place] with bowel regimen -clear liquid diet as per surgery although patient with nausea at this time may not be able to tolerate -Zofran PRN nausea If patient spikes temperature will obtain new cultures Continue drainage Of serosanguineous fluid as per surgery If abdominal pain continues to worsen will obtain abdominal flat plate to rule out ileus formation given bedbound status, pain medication use Encourage out of bed to prevent development of postoperative ileus from bedbound status History of asthma, not in acute exacerbation -continue with albuterol inhaler as needed for shortness of breath. Abnormal UA with dysuria -cultures no growth to date -On Levaquin for ruptured appendix DVT Lovenox Code: Full code Disposition: Medical surgery unit Progress Note: Quality VTE Deep Vein Thrombosis/Pulmonary Embolism Present on Admission: No _ (1) Acute appendicitis Qualifiers: Acute appendicitis type: Appendicitis abscess presence: Appendicitis gangrene presence: Appendicitis perforation presence:
[2018-05-04] MEDS: Acetaminophen 325 MG Tablet PO PRN (00:04)
[2018-05-04] MEDS: Morphine Inj 4 MG/ML Vial IV.PUSH PRN ×2 (00:54→08:14)
[2018-05-04 07:10] LABS: Hematocrit 30.6 % (35.0-46.0); Hemoglobin 10.4 gm/dL (11.6-15.3); Mean Corpuscular HGB Conc 33.9 % (32.0-36.0); Mean Corpuscular Hemoglobin 28.2 pg (27.0-34.0); Mean Corpuscular Volume 83.2 fL (80.0-100.0); Mean Platelet Volume 7.3 fL (7.0-11.0); Platelet Count 367 th/mm3 (150-450); Red Blood Count 3.67 mil/mm3 (4.00-5.30); Red Cell Distribution Width 16.1 % (11.6-17.2); White Blood Count 5.3 th/mm3 (4.0-11.0)
[2018-05-04 07:36] LABS: Anion Gap 6 meq/L (5-15); Blood Urea Nitrogen 3 mg/dL (7-18); Calcium 8.2 mg/dL (8.5-10.1); Chloride 107 meq/L (98-107); Glomerular Filtration Rate Greater Than 89 mL/min (>89); Glucose,Random 94 mg/dL (74-106); Potassium 3.7 meq/L (3.5-5.1); Sodium 138 meq/L (136-145)
--- NOTE | 2018-05-04 07:49 | P.PNGS ---
Subjective Interval history: Resting in bed No issues overnight Feeling a little hungry this morning Physical Exam Vital signs: Vital Signs 05/03/18 08:00 05/03/18 12:00 05/03/18 16:00 Temperature 97.5 F L 97.9 F 97.9 F Pulse Rate 72 78 75 Respiratory Rate 18 19 18 Blood Pressure 108/69 114/79 119/65 Pulse Oximetry 98 98 99 05/03/18 20:00 05/04/18 00:00 Temperature 98.0 F 97.7 F Pulse Rate 82 82 Respiratory Rate 18 20 Blood Pressure 115/67 127/70 Pulse Oximetry 98 98 Intake & Output 05/03/18 05/04/18 05/04/18 18:59 06:59 18:59 Intake Total 1320 / 1320 1666 / 1666 Output Total 125 / 125 100 / 100 Balance 1195 / 1195 1566 / 1566 Weight 78.6 kg Intake: IV 1100 / 1100 1186 / 1186 NS + KCl 20 mEq Inj 1,000 ML @ 1000 / 1000 836 / 836 100 mls/hr IV.CONT .Q10H [facility] Rx #:[id number] Levaquin 750 mg Premix Inj 150 150 / 150 ML @ 100 mls/hr IV.SIG Q24H [facility] Rx#:[id number] Flagyl 500 MG Inj 100 ML @ 100 100 / 100 200 / 200 mls/hr IV.SIG Q8H [facility] Rx#: [id number] Oral 220 / 220 480 / 480 Output: Wound Drainage 125 / 125 100 / 100 Lower Abdomen 125 / 125 100 / 100 Other: # Voids 5 2 Date of Last Bowel Movement 05/03/18 05/03/18 # Bowel Movements 3 Narrative: Alert and awake Abd: soft; lap sites c/d/i; LADAN with SS drainage--clear;minimally tender to palpation - Urinary Catheter Management Indwelling Urethral Catheter Cath placed during this visit: yes Urethral indwelling: No Reason for continuing: Other continuation reason Insertion date: 05/01/18 Results - Labs 05/04/18 06:50 05/04/18 06:50 Laboratory Results - last 24 hr 05/03/18 05/04/18 05/04/18 11:15 06:50 06:50 WBC 8.5 5.3 RBC 3.64 L 3.67 L Hgb 10.3 L 10.4 L Hct 30.6 L 30.6 L MCV 84.2 83.2 MCH 28.4 28.2 MCHC 33.7 33.9 RDW 15.7 16.1 Plt Count 344 367 MPV 7.8 7.3 Neut % (Auto) 72.9 H Lymph % (Auto) 15.9 [place] % (Auto) 10.5 H Eos % (Auto) 0.5 Baso % (Auto) 0.2 Neut # (Auto) 6.2 Lymph # (Auto) 1.4 [place] # (Auto) 0.9 Eos # (Auto) 0.0 Baso # (Auto) 0.0 WBC Differential . Differential Comment Auto diff final Sodium 138 Potassium 3.7 Chloride 107 Carbon Dioxide 25.0 Anion Gap 6 BUN 3 L Creatinine 0.53 Estimated GFR Greater than 89 Random Glucose 94 Calcium 8.2 L Magnesium 2.0 - Imaging Imaging: ITS Impressions Abdomen/Pelvis CT 04/30/18 09:14 CONCLUSION: Abnormal exam demonstrating mixed density masslike area right lower quadrant adjacent to cecum with slightly prominent lymph nodes at this site. Possibility of a ruptured appendix and periappendiceal abscess is the primary consideration is a normal appendix is not visualized. Additionally there are large cysts in the left ovary with slight fluid in the right adnexa and a normal right ovary is not visualized. Abscess Drainage CT 05/01/18 00:00 CONCLUSION: 1. Redemonstration of extensive inflammatory change in the right lower quadrant with central fluid collection. There is a very small percutaneous drainage window. 2. Attempted CT-guided drainage was aborted due to significant patient discomfort and lack of fluid aspiration despite final needle position within the central low density region. See above. Assessment and Plan - Plan 37 year old female POD3 dx lap; lap drainage in IAA -Continue routine LADAN care -Continue IV antibiotics -Advance to full liquids this morning -Patient continues to be high risk for ileus -Encouraged OOB -Will advance diet as bowel function returns and be able to transition to PO antibiotics - Attending Attestation patient seen at bedside full diet abx progressing well The exam, history, and the medical decision-making described in the above note were completed with the assistance of the mid-level provider. I reviewed and agree with the findings presented. I attest that I had a [id number] encounter with the patient on the same day, and personally performed and documented my assessment and findings in the medical record.
[2018-05-04] MEDS: Senna/Docusate Sodium 8.6/50 MG Tablet PO SCH ×2 (08:15→20:35)
[2018-05-04] MEDS: Enoxaparin Inj 30 MG/0.3 ML Syringe SQ SCH (08:15)
--- NOTE | 2018-05-04 16:44 | P.PNIM ---
Subjective Interval history: Patient seen and evaluated to morning at bedside. Patient denies subjective fever chills. Patient reports that she is feeling better over the last 24 hours and is able to ambulate without abdominal pain. Patient continues to have drainage through the LADAN drain. Patient would like to try a meal and has been on full liquids this morning and would be willing to try a more advanced diet for dinner if she does well also during lunch today. Physical Exam Vital signs: Vital Signs 05/03/18 20:00 05/04/18 00:00 05/04/18 08:00 Temperature 98.0 F 97.7 F 98.1 F Pulse Rate 82 82 82 Respiratory Rate 18 20 17 Blood Pressure 115/67 127/70 119/58 L Pulse Oximetry 98 98 97 05/04/18 09:37 05/04/18 12:00 05/04/18 14:48 Temperature 98.0 F Pulse Rate 69 Respiratory Rate 16 17 16 Blood Pressure 123/72 Pulse Oximetry 99 Intake & Output 05/03/18 05/04/18 05/04/18 18:59 06:59 18:59 Intake Total 1320 / 1320 1666 / 1666 1386 / 1386 Output Total 125 / 125 100 / 100 90 / 90 Balance 1195 / 1195 1566 / 1566 1296 / 1296 Weight 78.6 kg Intake: IV 1100 / 1100 1186 / 1186 1386 / 1386 NS + KCl 20 mEq Inj 1,000 ML @ 1000 / 1000 836 / 836 1286 / 1286 100 mls/hr IV.CONT .Q10H [facility] Rx #:[id number] Levaquin 750 mg Premix Inj 150 150 / 150 ML @ 100 mls/hr IV.SIG Q24H [facility] Rx#:[id number] Flagyl 500 MG Inj 100 ML @ 100 100 / 100 200 / 200 100 / 100 mls/hr IV.SIG Q8H [facility] Rx#: [id number] Oral 220 / 220 480 / 480 Output: Wound Drainage 125 / 125 100 / 100 90 / 90 Lower Abdomen 125 / 125 100 / 100 90 / 90 Other: # Voids 5 2 Date of Last Bowel Movement 05/03/18 05/03/18 05/04/18 # Bowel Movements 3 General: No acute distress conversational HEENT: EOMI Cardiovascular: S1/S2. Regular rhythm Respiratory: Clear to auscultation bilaterally gastroenterology: Minimal tenderness, no guarding or rebound, positive bowel sounds, postsurgical scars. LADAN drain with serosanguineous fluid Extremity: No lower extremity edema noted Urinary Catheter Management Indwelling Urethral Catheter: Cath placed during this visit: yes Urethral indwelling: No Reason for continuing: Other continuation reason Insertion date: 05/01/18 Results Labs CBC & Chem 7: 05/04/18 06:50 05/04/18 06:50 Assessment and Plan (1) Acute appendicitis: Code(s): K35.80 - Unspecified acute appendicitis Status: Acute Plan 37-year-old white female with a history of asthma presents emergency room with 4 -day history of epigastric sharp stabbing pain with generalized bandlike radiation associated with intractable nausea, nonbilious vomiting with chills and fevers found to have appendicitis with intra-abdominal abscess formation status post surgical intervention. Gastroenterology: S/P drainage of intra-abdominal abscess, Suspect ruptured appendix -Discontinue fluid as patient is tolerating oral -Advance diet -Continue IV Levaquin and Flagyl IV. Will transition to oral tomorrow if patient demonstrates 24 hours of taking good oral intake with new diet -IV morphine for breakthrough pain, [place] with bowel regimen -clear liquid diet as per surgery although patient with nausea at this time may not be able to tolerate -Zofran PRN nausea If patient spikes temperature will obtain new cultures Continue drainage Of serosanguineous fluid as per surgery via LADAN History of asthma, not in acute exacerbation -continue with albuterol inhaler as needed for shortness of breath. Abnormal UA with dysuria -cultures no growth to date -On Levaquin for ruptured appendix DVT Lovenox Code: Full code Disposition: Medical surgery unit Progress Note: Quality VTE Deep Vein Thrombosis/Pulmonary Embolism Present on Admission: No _ (1) Acute appendicitis Qualifiers: Acute appendicitis type: Appendicitis abscess presence: Appendicitis gangrene presence: Appendicitis perforation presence:
[2018-05-05] MEDS: Senna/Docusate Sodium 8.6/50 MG Tablet PO SCH (09:50)
[2018-05-05] MEDS: Enoxaparin Inj 30 MG/0.3 ML Syringe SQ SCH (09:50)
--- NOTE | 2018-05-05 11:48 | P.PNGS ---
Subjective Patient reports: no new complaints, feels better, flatus, bowel movement Physical Exam Vital signs: Vital Signs 05/04/18 12:00 05/04/18 14:48 05/04/18 16:00 Temperature 98.0 F 98.1 F Pulse Rate 69 75 Respiratory Rate 17 16 18 Blood Pressure 123/72 121/76 Pulse Oximetry 99 99 05/04/18 20:00 05/05/18 00:00 05/05/18 08:00 Temperature 98.1 F 98.1 F 98.0 F Pulse Rate 70 73 75 Respiratory Rate 18 18 20 Blood Pressure 123/73 130/76 119/74 Pulse Oximetry 99 100 97 Intake & Output 05/04/18 05/05/18 05/05/18 18:59 06:59 18:59 Intake Total 1886 / 1886 1570 / 1570 Output Total 90 / 90 70 / 70 Balance 1796 / 1796 1570 / 1570 -70 / -70 Weight 78.7 kg Intake: IV 1386 / 1386 1350 / 1350 NS + KCl 20 mEq Inj 1,000 ML @ 1286 / 1286 1000 / 1000 100 mls/hr IV.CONT .Q10H [facility] Rx #:[id number] Levaquin 750 mg Premix Inj 150 150 / 150 ML @ 100 mls/hr IV.SIG Q24H [facility] Rx#:[id number] Flagyl 500 MG Inj 100 ML @ 100 100 / 100 200 / 200 mls/hr IV.SIG Q8H [facility] Rx#: [id number] Oral 500 / 500 220 / 220 Output: Wound Drainage 90 / 90 70 / 70 Lower Abdomen 90 / 90 70 / 70 Other: # Voids 4 3 Date of Last Bowel Movement 05/04/18 05/04/18 # Bowel Movements 1 - Routine Cardiovascular Exam Present: RRR - Routine Abdominal Exam Present: soft (incisional tenderness, del serous) - Urinary Catheter Management Indwelling Urethral Catheter Cath placed during this visit: yes Urethral indwelling: No Reason for continuing: Other continuation reason Insertion date: 05/01/18 Results - Labs 05/04/18 06:50 05/04/18 06:50 - Imaging Imaging: ITS Impressions Abdomen/Pelvis CT 04/30/18 09:14 CONCLUSION: Abnormal exam demonstrating mixed density masslike area right lower quadrant adjacent to cecum with slightly prominent lymph nodes at this site. Possibility of a ruptured appendix and periappendiceal abscess is the primary consideration is a normal appendix is not visualized. Additionally there are large cysts in the left ovary with slight fluid in the right adnexa and a normal right ovary is not visualized. Abscess Drainage CT 05/01/18 00:00 CONCLUSION: 1. Redemonstration of extensive inflammatory change in the right lower quadrant with central fluid collection. There is a very small percutaneous drainage window. 2. Attempted CT-guided drainage was aborted due to significant patient discomfort and lack of fluid aspiration despite final needle position within the central low density region. See above. Assessment and Plan - Plan Perforated appendicitis with abscess s/p Lap drainage of appendiceal abscess PLAN reg diet PO abx, for 1 week pain control dvt ppx d/c home remove DEL drain f/u 1 week
[2018-05-05 13:12] VITALS: BP 134/64; PULSE 95; RESP 17; TEMP 98.1; O2SAT 99
--- NOTE | 2018-05-05 13:14 | P.DS ---
DS: Providers Date of admission: 04/30/18 15:02 Primary care physician: 37-year-old male past medical history of asthma who presented to emergency department at [facility] for abdominal pain. While hospitalized the following treatments and services were provided in her care. Abdominal CT was significant for a mixed density masslike area in the right lower quadrant adjacent to the cecum with slightly prominent lymph nodes in the region. Possibility of ruptured appendix and periappendiceal abscess was a primary consideration. During hospitalization consultation was appreciated by surgery. On 05/01 patient went to the operating room for a laparoscopic drainage of intra-abdominal abscess. Procedure was successful and patient was continued on medical surgery unit. Patient clinically improved with resolution of nausea. Patient remains afebrile and is clinically stable and cleared from general surgery standpoint for discharge with outpatient follow-up. Patient is to be cleared from medical standpoint as well. Patient to be discharged with following provision for follow-up care. Patient to follow-up with a primary medical physician in 7 days. Patient to follow-up with general surgery within 7 days. Patient will be provided antibiotics ciprofloxacin and Flagyl for 7 days. Patient will be provided pain medication. 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 She also reports a 4-day history of constipation which is unusual for her. She denies any unusual food intake during the past week. She denies any associated chest pains nor any shortness of breath. She reports a 2-day history of dysuria with no urinary urgency or frequency. She denies any unusual vaginal discharge. DS: Diagnosis Discharge Diagnosis (1) Acute appendicitis: Status: Acute DS: Summary 37-year-old male past medical history of asthma who presented to emergency department at [facility] for abdominal pain. While hospitalized the following treatments and services were provided in her care. Abdominal CT was significant for a mixed density masslike area in the right lower quadrant adjacent to the cecum with slightly prominent lymph nodes in the region. Possibility of ruptured appendix and periappendiceal abscess was a primary consideration. During hospitalization consultation was appreciated by surgery. On 05/01 patient went to the operating room for a laparoscopic drainage of intra-abdominal abscess. Procedure was successful and patient was continued on medical surgery unit. Patient clinically improved with resolution of nausea. Patient remains afebrile and is clinically stable and cleared from general surgery standpoint for discharge with outpatient follow-up. Patient is to be cleared from medical standpoint as well. Patient to be discharged with following provision for follow-up care. Patient to follow-up with a primary medical physician in 7 days. Patient to follow-up with general surgery within 7 days. Patient will be provided antibiotics ciprofloxacin and Flagyl for 7 days. Patient will be provided pain medication. Time Spent with Patient Total time spent providing and/or coordinating discharge services: > 30 min 37-year-old male past medical history of asthma who presented to emergency department at [facility] for abdominal pain. While hospitalized the following treatments and services were provided in her care. Abdominal CT was significant for a mixed density masslike area in the right lower quadrant adjacent to the cecum with slightly prominent lymph nodes in the region. Possibility of ruptured appendix and periappendiceal abscess was a primary consideration. During hospitalization consultation was appreciated by surgery. On 05/01 patient went to the operating room for a laparoscopic drainage of intra-abdominal abscess. Procedure was successful and patient was continued on medical surgery unit. Patient clinically improved with resolution of nausea. Patient remains afebrile and is clinically stable and cleared from general surgery standpoint for discharge with outpatient follow-up. Patient is to be cleared from medical standpoint as well. Patient to be discharged with following provision for follow-up care. Patient to follow-up with a primary medical physician in 7 days. Patient to follow-up with general surgery within 7 days. Patient will be provided antibiotics ciprofloxacin and Flagyl for 7 days. Patient will be provided pain medication. Quality: VTE Deep Vein Thrombosis/Pulmonary Embolism Present on Admission: No Exam Narrative Exam Narrative: Neuro: No acute distress Cardiovascular: S1/S2. No murmurs rubs or gallops Respiratory: Clear to auscultation bilaterally Gastro: Postsurgical scar, soft, nontender, nondistended, no guarding or rebound appreciated. Positive bowel sounds Extremity: No lower extremity edema Results Impressions ITS Impressions Abdomen/Pelvis CT 04/30/18 09:14 CONCLUSION: Abnormal exam demonstrating mixed density masslike area right lower quadrant adjacent to cecum with slightly prominent lymph nodes at this site. Possibility of a ruptured appendix and periappendiceal abscess is the primary consideration is a normal appendix is not visualized. Additionally there are large cysts in the left ovary with slight fluid in the right adnexa and a normal right ovary is not visualized. Abscess Drainage CT 05/01/18 00:00 CONCLUSION: 1. Redemonstration of extensive inflammatory change in the right lower quadrant with central fluid collection. There is a very small percutaneous drainage window. 2. Attempted CT-guided drainage was aborted due to significant patient discomfort and lack of fluid aspiration despite final needle position within the central low density region. See above. Discharge Plan Discharge Disposition Patient Disposition: Discharge Home Discharge Condition Condition: Stable Discharge Order Discharge Orders: Discharge Order (Routine); Ordered 05/05/18 Ordered By: Prasad Madison Discharge Details Anticipated Discharge Date: 05/05/18 Discharge Comment: script on chart for pain meds Physicians Team ED Provider: Denice Sena Primary Care Provider: Primary Care Annette العراقي Attending Provider: Prasad Madison Other Providers: Narciso Thomas Rxs /Orders / Referrals /Forms Prescriptions: New hydrocodone-acetaminophen 7.5-325 mg Tablet 1 tab PO Q6H PRN (Reason: Pain 7-10) 7 Days Qty: 28 RF: 0 metronidazole [Flagyl] 500 mg tablet 500 mg PO Q8H 7 Days Qty: 21 RF: 0 ciprofloxacin HCl 500 mg tablet 500 mg PO Q12H 7 Days Qty: 14 RF: 0 Continue albuterol sulfate [ProAir HFA] 90 mcg/actuation Hfa Aerosol Inhaler 1 puff INHALATION Q4-6H PRN (Reason: Respiratory Distress) RF: 0 Referrals: Narciso Thomas MD [Physician] - See Instructions (f/u 1 week, ok to shower tomorrow, no bath tub) Primary Care Annette العراقي [Primary Care Provider] - See Instructions Discharge Instructions Patient Printed Instructions: Appendicitis (GEN) Additional Instructions: Andrew drain site expected to close by itself in 3-4 days. May use a dry 4x4 if needed at all. Status ED Status: Left Department
== END 2018-05-05 16:13 | disposition home or self-care (01) | DRG 372 ==
LOC: NEPD 08:04 → NEDA 15:02 → N07 16:54
PROVIDERS: ADMIT Internal Medicine; ATTEND Internal Medicine
PROC: LAPSCPY (ICD-10-PCS; 2018-05-01 19:27)
CPT/HCPCS: 74177; 75989; 80048; 80053; 81001; 83690; 83735; 84703; 85025; 85027; 85610; 85730; 87086; 90761; 90765; 90767; 90775; 90776; 96361; 96365; 96367; 96375; 96376; 99145; 99152; 99153; 99285; J0131; J0744; J1650; J1956; J2250; J2270; J2405; J2765; J3010; J3480; J7030; Q9963; Q9967